=== PATIENT | female | born 1975 | race Caucasian/White ===

== ENCOUNTER 2016-09-05 22:09 | Emergency (ER) | payer MEDICAID ==
[~2016-09-05] VITALS: Ht 162.6 cm; Wt 81.0 kg
[~2016-09-05 22:09] MED LIST: IBUP-1542 PO
[2016-09-05 22:12] VITALS: Ht 162.6 cm; Wt 81.0 kg
[2016-09-06] MEDS ORDERED: morphine 4 MG/ML VIAL IV STA (01:40)
[2016-09-06] MEDS ORDERED: ONDANSETRON 4 MG INJ IV STA (01:40)
[2016-09-06] MEDS ORDERED: DICYCLOMINE 10 MG CAP PO ONE (02:00)
[2016-09-06 02:24] LABS: ADD UMIC YES; URINE BILIRUBIN (Dip) NEGATIVE (NEGATIVE); URINE BLOOD (Dip) 1+ (NEGATIVE); URINE COLOR LT. YELLOW (YELLOW); URINE GLUCOSE (Dip) NEGATIVE (NEGATIVE); URINE KETONES (Dip) NEGATIVE (NEGATIVE); URINE LEUKOCYTE ESTERASE (Dip) NEGATIVE (NEGATIVE); URINE NITRITE (Dip) NEGATIVE (NEGATIVE); URINE TOTAL PROTEIN (Dip) NEGATIVE (NEGATIVE); URINE UROBILINOGEN (Dip) 0.2 E.U./dL (0.1-1.0)
--- NOTE | 2016-09-06 02:26 | RADRPT ---
PROCEDURE: Abdominal ultrasound, limited. CLINICAL INDICATION: Abdominal pain. TECHNIQUE: Multiple real-time images were acquired of the patient's right upper abdomen utilizing a high resolution transducer. COMPARISON: None FINDINGS: The liver demonstrates normal echogenicity and increased size measuring 17.9 cm. There is no focal mass or intrahepatic biliary ductal dilatation. The portal vein is patent. The gallbladder is not distended. No gallstones are identified. There is no pericholecystic fluid or gallbladder wall thi ckening. The common bile duct measures 2.4 mm in maximal dimension. The visualized portions of the pancreas are unremarkable. No free fluid is identified. The right kidney is normal size and echogenicity measuring 12.2 cm. There is no focal renal mass id entified. There is a 5 mm right renal calculus. There is no obstructive uropathy. The visualized abdominal aorta and vena cava are unremarkable. IMPRESSION: Mild hepatomegaly. Right renal calculus. Otherwise unremarkable abdominal ultrasound. .Martín Kumar MD, Date Time Electronically viewed and signed by .Martín Kumar MD, MD on 09/06/2016 02:26 .T/
[2016-09-06 02:43] LABS: BASOPHILS % 0.9 % (0.0-2.0); EOSINOPHILS # 0.2 10^3/ul (0.0-0.5); EOSINOPHILS % 3.4 % (0.0-7.0); HEMOGLOBIN 11.7 g/dl (12.0-16.0); LYMPHOCYTES % 38.4 % (15.0-51.0); MEAN CORPUSCULAR HGB CONC 34.3 g/dl (32.0-37.0); MEAN CORPUSCULAR VOLUME 81.6 fl (82.0-101.0); MEAN PLATELET VOLUME 10.1 fl (7.4-10.4); MONOCYTE # 0.6 10^3/ul (0.3-0.9); MONOCYTES % 11.1 % (0.0-11.0); NEUTROPHIL # 2.4 10^3/ul (1.6-7.5); NEUTROPHILS % 46.2 % (39.0-77.0); PLATELET COUNT 247 10^3/UL (140-440); RED BLOOD COUNT 4.16 10^6/ul (4.20-5.40); RED CELL DISTRIBUTION WIDTH 13.3 % (11.5-14.5); UNCORRECTED WBC 5.2 10^3/ul (4.8-10.8); WHITE BLOOD COUNT 5.2 10^3/ul (4.8-10.8)
[2016-09-06 02:45] LABS: POTASSIUM 4.3 mmol/L (3.5-5.1)
[2016-09-06 02:46] LABS: CONDITION 1; LH ANALYZER COMMENTS 1
[2016-09-06 02:47] LABS: ALBUMIN/GLOBULIN RATIO 1.14; BILIRUBIN,INDIRECT 0.2 mg/dl (0-1.1); BILIRUBIN,TOTAL 0.2 mg/dl (0.2-1.3); CREATININE 0.64 mg/dl (0.44-1.00); TOTAL PROTEIN 7.5 g/dl (6.1-8.1)
[2016-09-06 02:48] LABS: CALCIUM 8.7 mg/dl (8.4-10.2)
[2016-09-06 03:30] LABS: BACTERIA,URINE FEW; SQUAMOUS EPITHELIAL CELL,UR FEW; URINE RBCS 0-2 /HPF (0)
[2016-09-06] MEDS ORDERED: NAPR-260 PO (04:03)
--- NOTE | 2016-09-06 04:07 | ERD ---
ER Documentation Chief Complaint Date/Time DATE: 09/06/16 TIME: 04:04 Chief Complaint RUQ abd pain radaiting to back x 1 day HPI 41-year-old female with no significant past medical history presents the ED complaining of right flank and right upper quadrant pain that started yesterday. States that sometimes the right upper quadrant pain radiates to the left side of her abdomen. Reports that she has slight chills but denies taking a temperature at home. Denies any fever, chest pain, shortness of breath, diarrhea, vomiting, nausea, wheezing, cough. Reports that her last menses was on September 03, 2015. Denies any urgency, frequency, hematuria, vaginal bleeding , vaginal discharge. ROS All systems reviewed and are negative except as per history of present illness. Medications Home Meds Active Scripts Naproxen* (Naprosyn*) 500 Mg Tablet, 500 MG PO BID Y for PAIN AND/OR INFLAMMATION, #30 TAB Prov:LINDA ROSALES PA-C 09/06/16 Ibuprofen* (Motrin*) 600 Mg Tab, 600 MG PO Q6H Y for PAIN AND OR ELEVATED TEMP, #30 TAB Prov:PARISA DUFFY MD 10/20/15 Allergies Allergies: Coded Allergies: No Known Allergy (Unverified , 10/20/15) PMhx/Soc History of Surgery: No Anesthesia Reaction: No Hx Neurological Disorder: No Hx Respiratory Disorders: No Hx Cardiac Disorders: No Hx Psychiatric Problems: No Hx Alcohol Use: No Hx Substance Use: No Hx Tobacco Use: No Smoking Status: Never smoker Physical Exam Vitals Vital Signs Date Time Temp Pulse Resp B/P Pulse Ox O2 Delivery O2 Flow Rate FiO2 09/05/16 22:12 98.3 84 20 128/77 100 Physical Exam Const: [id number], well-nourished. In no acute distress. Head: Atraumatic, normocephalic Eyes: Normal Conjunctiva without injection. No purulent discharge. ENT: Normal external ear, nose. Moist oropharynx without tonsillar exudates. Non -erythematous pharynx. Uvula midline. No drooling. No trismus. Neck: No cervical midline tenderness. Full range of motion. No meningismus. No cervical lymphadenopathy. No JVD. Resp: Clear to auscultation bilaterally. No wheezing, rhonchi, rales, or crackles. No accessory muscle use. No retractions. Cardio: Regular rate and rhythm. No murmurs, rubs or gallops. Abd: Soft, right upper quadrant tenderness, non distended. Normal bowel sounds. No palpable masses. No rebound tenderness. No guarding. Negative McBurney' s point. Negative psoas sign. Negative obturator sign. Skin: No petechiae or rashes Back: No midline tenderness. Right CVA tenderness. Ext: No cyanosis, or edema. Neur: Awake and alert. Normal gait. Normal coordination. Psych: Normal Mood and Affect Result Diagram: 09/06/1620909/06/16209 Results 24 hrs Laboratory Tests Test 09/06/16 02:10 Alanine Aminotransferase (ALT/SGPT) 31IU/L Albumin 4.0g/dl Albumin/Globulin Ratio 1.14 Alkaline Phosphatase 76IU/L Anion Gap 16 Aspartate Amino Transf (AST/SGOT) 31IU/L Basophils # 0.010^3/ul Basophils % 0.9% Blood Morphology Comment Blood Urea Nitrogen 18mg/dl Calcium Level 8.7mg/dl Carbon Dioxide Level 23mmol/L Chloride Level 109mmol/L Creatinine 0.64mg/dl Direct Bilirubin 0.00mg/dl Eosinophils # 0.210^3/ul Eosinophils % 3.4% Globulin 3.50g/dl Glucose Level 103mg/dl Hematocrit 34.0% Hemoglobin 11.7g/dl Indirect Bilirubin 0.2mg/dl Lipase 89U/L Lymphocytes # 2.010^3/ul Lymphocytes % 38.4% Mean Corpuscular Hemoglobin 28.0pg Mean Corpuscular Hemoglobin Concent 34.3g/dl Mean Corpuscular Volume 81.6fl Mean Platelet Volume 10.1fl Monocytes # 0.610^3/ul Monocytes % 11.1% Neutrophils # 2.410^3/ul Neutrophils % 46.2% Nucleated Red Blood Cells # 0.010^3/ul Nucleated Red Blood Cells % 0.0/100WBC Platelet Count 69737^3/UL Potassium Level 4.3mmol/L Red Blood Count 4.1610^6/ul Red Cell Distribution Width 13.3% Sodium Level 144mmol/L Total Bilirubin 0.2mg/dl Total Protein 7.5g/dl Urine Bacteria FEW Urine Bilirubin NEGATIVE Urine Clarity CLEAR Urine Color LT. YELLOW Urine Glucose NEGATIVE% Urine Hemoglobin 1+ Urine Ketones NEGATIVE Urine Leukocyte Esterase NEGATIVE Urine Microscopic RBC 0-2/HPF Urine Microscopic WBC 0-2/HPF Urine Nitrite NEGATIVE Urine Specific [place] 1.020 Urine Squamous Epithelial Cells FEW Urine Total Protein NEGATIVE Urine Urobilinogen 0.2 E.U./dL Urine pH 6.0 White Blood Count 5.210^3/ul Current Medications Medications (Trade) Dose Ordered Sig/Radha Route PRN Reason Start Time Stop Time Status Last Admin Dose Admin Morphine Sulfate (morphine) 4 mg ONCE STAT IV 09/06/16 01:40 09/06/16 01:43 DC 09/06/16 02:14 Ondansetron HCl (Zofran Inj) 4 mg ONCE STAT IV 09/06/16 01:40 09/06/16 01:43 DC 09/06/16 02:14 Dicyclomine HCl (Bentyl) 20 mg ONCE ONCE PO 09/06/16 02:00 09/06/16 02:01 DC 09/06/16 02:14 Procedures/MDM This is a 41-year-old female with no significant past medical history presents to the ED complaining of right upper quadrant and right flank pain. Patient is afebrile nontoxic appearing. Patient has normal vital signs. Patient was further worked up with CBC, CMP, lipase, UA, urine , gallbladder ultrasound. Patient's pain and symptoms have improved after treatment with 4 mg IV morphine, 4 mg IV Zofran, Bentyl. CBC: No leukocytosis. No e/o of systemic infection. No e/o anemia. CMP: No e/o severe acidosis, alkalosis, renal failure, diabetic ketoacidosis, liver disease Lipase within normal limits. Urine: No leukocyte esterase, no nitrites, no hematuria. Urine : Negative PROCEDURE: Abdominal ultrasound, limited. CLINICAL INDICATION: Abdominal pain. TECHNIQUE: Multiple real-time images were acquired of the patient's right upper abdomen utilizing a high resolution transducer. COMPARISON: None FINDINGS: The liver demonstrates normal echogenicity and increased size measuring 17.9 cm. There is no focal mass or intrahepatic biliary ductal dilatation. The portal vein is patent. The gallbladder is not distended. No gallstones are identified. There is no pericholecystic fluid or gallbladder wall thickening. The common bile duct measures 2.4 mm in maximal dimension. The visualized portions of the pancreas are unremarkable. No free fluid is identified. The right kidney is normal size and echogenicity measuring 12.2 cm. There is no focal renal mass identified. There is a 5 mm right renal calculus. There is no obstructive uropathy. The visualized abdominal aorta and vena cava are unremarkable. IMPRESSION: Mild hepatomegaly. Right renal calculus. Otherwise unremarkable abdominal ultrasound. Patient's pain could likely be due to the right renal calculus, 5 mm in size. There is no obstructive uropathy. Low suspicion for septic renal stone. Urinalysis is negative for leukocyte esterase and nitrite. A differential diagnosis considered includes but is not limited to gastritis, GERD, peptic ulcer disease, cholecystitis, choledocholithiasis, cholangitis, pancreatitis, appendicitis, bowel obstruction, ileus, volvulus, nephrolithiasis, pyelonephritis, hepatitis, perforated viscus, diverticulitis, abdominal hernia, acute abdomen, mesenteric ischemia or other emergent conditions. Discharge medications: Naproxen Follow up with primary care physician in 1-2 days for referral to [facility] [employer] [employer]. Instructed patient to return to the ED sooner for any worsening symptoms. Patient's questions were answered. Patient understood and agreed with discharge plan. Patient discharged stable. Departure Diagnosis: Primary Impression: Kidney stone Condition: Stable Patient Instructions: Kidney Stone W/ Colic Referrals: COMMUNITY CLINICS YOU HAVE RECEIVED A MEDICAL SCREENING EXAM AND THE RESULTS INDICATE THAT YOU DO NOT HAVE A CONDITION THAT REQUIRES URGENT TREATMENT IN THE EMERGENCY DEPARTMENT. FURTHER EVALUATION AND TREATMENT OF YOUR CONDITION CAN WAIT UNTIL YOU ARE SEEN IN YOUR DOCTORS OFFICE WITHIN THE NEXT 1-2 DAYS. IT IS YOUR RESPONSIBILITY TO MAKE AN APPOINTMENT FOR FOLOW-UP CARE. IF YOU HAVE A PRIMARY DOCTOR --you should call your primary doctor and schedule an appointment IF YOU DO NOT HAVE A PRIMARY DOCTOR YOU CAN CALL OUR PHYSICIAN REFERRAL HOTLINE AT IF YOU CAN NOT AFFORD TO SEE A PHYSICIAN YOU CAN CHOSE FROM THE FOLLOWING [facility] [address] [facility] [address] [facility] [address] [facility] [address] [facility] [address] [facility]. [facility] [address] [facility]. [facility] YOU HAVE RECEIVED A MEDICAL SCREENING EXAM AND THE RESULTS INDICATE THAT YOU DO NOT HAVE A CONDITION THAT REQUIRES URGENT TREATMENT IN THE EMERGENCY DEPARTMENT. FURTHER EVALUATION AND TREATMENT OF YOUR CONDITION CAN WAIT UNTIL YOU ARE SEEN IN YOUR DOCTORS OFFICE WITHIN THE NEXT 1-2 DAYS. IT IS YOUR RESPONSIBILITY TO MAKE AN APPOINTMENT FOR FOLOW-UP CARE. IF YOU HAVE A PRIMARY DOCTOR --you should call your primary doctor and schedule and appointment IF YOU DO NOT HAVE A PRIMARY DOCTOR YOU CAN CALL OUR PHYSICIAN REFERRAL HOTLINE AT . IF YOU CAN NOT AFFORD TO SEE A PHYSICIAN YOU CAN CHOSE FROM THE FOLLOWING [facility] INSTITUTIONS: [facility] [address] [place] [address] [facility] [address] [place] [address] [facility] [address] [place] [address] [facility] URGENT CARE/SPECIALTIES Additional Instructions: FOLLOW UP WITH YOUR PRIMARY CARE PHYSICIAN in 2-3 days. Return to this facility if you are not improving as expected. LINDA ROSALES PA-C Sep 06, 2016 04:07
== END 2016-09-06 04:15 | disposition home or self-care (01) ==
LOC: FTE 22:09
DX: N20.0 Calculus of kidney (principal)
CPT/HCPCS: 36415; 76705; 80053; 81001; 83690; 85025; 96374; 96375; J2270; J2405; Z7502; Z7610; 81003

== ENCOUNTER 2016-12-13 13:11 | Emergency (ER) | payer MEDICAID ==
[~2016-12-13] VITALS: Ht 165.1 cm; Wt 79.5 kg
[~2016-12-13 13:11] MED LIST changes: +NAPR-260 PO
[2016-12-13 13:13] VITALS: Ht 165.1 cm; Wt 79.5 kg
[2016-12-13] MEDS ORDERED: morphine 4 MG/ML VIAL IV STA (14:26)
[2016-12-13] MEDS ORDERED: ONDANSETRON 4 MG INJ IV STA (14:26)
[2016-12-13 14:57] LABS: ADD SCAN DIFF NO
[2016-12-13 15:00] LABS: BASOPHILS % 0.4 % (0.0-2.0); EOSINOPHILS # 0.1 10^3/ul (0.0-0.5); EOSINOPHILS % 1.3 % (0.0-7.0); HEMATOCRIT 37.3 % (37.0-47.0); HEMOGLOBIN 12.4 g/dl (12.0-16.0); LYMPHOCYTES # 0.9 10^3/ul (0.8-2.9); LYMPHOCYTES % 10.7 % (15.0-51.0); MEAN CORPUSCULAR HEMOGLOBIN 27.3 pg (29.0-33.0); MEAN CORPUSCULAR HGB CONC 33.2 g/dl (32.0-37.0); MEAN PLATELET VOLUME 11.6 fl (7.4-10.4); MONOCYTE # 0.5 10^3/ul (0.3-0.9); MONOCYTES % 6.4 % (0.0-11.0); NEUTROPHIL # 6.8 10^3/ul (1.6-7.5); NEUTROPHILS % 80.7 % (39.0-77.0); PLATELET COUNT 250 10^3/UL (140-415); RED BLOOD COUNT 4.55 10^6/ul (4.20-5.40); RED CELL DISTRIBUTION WIDTH 13.2 % (11.5-14.5); WHITE BLOOD COUNT 8.5 10^3/ul (4.8-10.8)
--- NOTE | 2016-12-13 15:02 | ERD ---
ER Documentation Chief Complaint Date/Time DATE: 12/13/16 TIME: 14:59 Chief Complaint abd pain radiating to back x 2 days with vomiting HPI This is a 41-year-old female who presents to the emergency department today complaining of abdominal pain and back pain that started yesterday. States she is taking Naprosyn for the pain with no improvement. States that she has a history of kidney stones but this "feels worse". States she feels nauseated and has had vomiting. States she had a bowel movement this morning denies any fevers or chills, dysuria, hematuria. ROS All systems reviewed and are negative except as per history of present illness. Medications Home Meds Active Scripts Ondansetron Hcl* (Zofran*) 4 Mg Tablet, 4 MG PO Q6H for NAUSEA AND/OR VOMITING, #30 TAB Prov:SMOOTH CLAYTON PA-C 12/13/16 Acetaminophen* (Tylophen*) 500 Mg Capsule, 1 CAP PO Q6H Y for PAIN AND OR ELEVATED TEMP, #30 CAP Prov:SMOOTH CLAYTON PA-C 12/13/16 Docusate Sodium* (Colace*) 100 Mg Capsule, 100 MG PO TID, #30 CAP Prov:SMOOTH CLAYTON PA-C 12/13/16 Polyethylene Glycol* (Miralax*) 17 Gm Powd.pack, 17 GM PO DAILY, #20 Prov:SMOOTH CLAYTON PA-C 12/13/16 Tramadol HCl (Tramadol HCl) 50 Mg Tablet, 50 MG PO Q4 Y for PAIN, #20 TAB Prov:SMOOTH CLAYTON PA-C 12/13/16 Naproxen* (Naprosyn*) 500 Mg Tablet, 500 MG PO BID Y for PAIN AND/OR INFLAMMATION, #30 TAB Prov:LINDA ROSALES PA-C 09/06/16 Ibuprofen* (Motrin*) 600 Mg Tab, 600 MG PO Q6H Y for PAIN AND OR ELEVATED TEMP, #30 TAB Prov:PARISA DUFFY MD 10/20/15 Allergies Allergies: Coded Allergies: No Known Allergy (Unverified , 10/20/15) PMhx/Soc Medical and Surgical Hx: pt denies Medical Hx, pt denies Surgical Hx History of Surgery: No Anesthesia Reaction: No Hx Neurological Disorder: No Hx Respiratory Disorders: No Hx Cardiac Disorders: No Hx Psychiatric Problems: No Hx Alcohol Use: No Hx Substance Use: No Hx Tobacco Use: No Smoking Status: Never smoker Physical Exam Vitals Vital Signs Date Time Temp Pulse Resp B/P Pulse Ox O2 Delivery O2 Flow Rate FiO2 12/13/16 13:13 98.1 92 18 134/77 100 Physical Exam Const: mild distress Head: Atraumatic Eyes: Normal Conjunctiva ENT: Normal External Ears, Nose and Mouth. Neck: Full range of motion..~ No meningismus. Resp: Clear to auscultation bilaterally Cardio: Regular rate and rhythm, no murmurs Abd: Soft, diffuse abdominal pain non distended. Normal bowel sounds Skin: No petechiae or rashes Back: No midline tenderness. Bilateral paraspinal tenderness Ext: No cyanosis, or edema Neur: Awake and alert Psych: Normal Mood and Affect Result Diagram: 12/13/16 1430 12/13/16 1430 Results 24 hrs Laboratory Tests Test 12/13/16 14:30 12/13/16 14:45 White Blood Count 8.510^3/ul Red Blood Count 4.5510^6/ul Hemoglobin 12.4g/dl Hematocrit 37.3% Mean Corpuscular Volume 82.0fl Mean Corpuscular Hemoglobin 27.3pg Mean Corpuscular Hemoglobin Concent 33.2g/dl Red Cell Distribution Width 13.2% Platelet Count 56329^3/UL Mean Platelet Volume 11.6fl Neutrophils % 80.7% Lymphocytes % 10.7% Monocytes % 6.4% Eosinophils % 1.3% Basophils % 0.4% Nucleated Red Blood Cells % 0.0/100WBC Neutrophils # 6.810^3/ul Lymphocytes # 0.910^3/ul Monocytes # 0.510^3/ul Eosinophils # 0.110^3/ul Basophils # 0.010^3/ul Nucleated Red Blood Cells # 0.010^3/ul Sodium Level 140mmol/L Potassium Level 3.5mmol/L Chloride Level 102mmol/L Carbon Dioxide Level 27mmol/L Anion Gap 15 Blood Urea Nitrogen 15mg/dl Creatinine 0.62mg/dl Glucose Level 91mg/dl Calcium Level 9.4mg/dl Total Bilirubin 0.4mg/dl Direct Bilirubin 0.00mg/dl Indirect Bilirubin 0.4mg/dl Aspartate Amino Transf (AST/SGOT) 37IU/L Alanine Aminotransferase (ALT/SGPT) 36IU/L Alkaline Phosphatase 89IU/L Total Protein 8.0g/dl Albumin 4.3g/dl Globulin 3.70g/dl Albumin/Globulin Ratio 1.16 Lipase 46U/L Urine Color LT. YELLOW Urine Clarity CLEAR Urine pH 5.5 Urine Specific [place] 1.010 Urine Ketones NEGATIVE Urine Nitrite NEGATIVE Urine Bilirubin NEGATIVE Urine Urobilinogen 0.2 E.U./dL Urine Leukocyte Esterase NEGATIVE Urine Hemoglobin NEGATIVE Urine Glucose NEGATIVE% Urine Total Protein NEGATIVE Current Medications Medications (Trade) Dose Ordered Sig/Radha Route PRN Reason Start Time Stop Time Status Last Admin Dose Admin Morphine Sulfate (morphine) 4 mg ONCE STAT IV 12/13/16 14:26 12/13/16 14:29 DC 12/13/16 14:46 Ondansetron HCl (Zofran Inj) 4 mg ONCE STAT IV 12/13/16 14:26 12/13/16 14:29 DC 12/13/16 14:46 DIAGNOSTIC IMAGING REPORT Patient: ANTHONY LUNA : 1975 Age: 41 Sex: F MR #: [id number] DOS: 12/13/16 1426 Ordering MD: SMOOTH CLAYTON PA-C Location: [facility] Room/Bed: PROCEDURE: CT Abdomen and Pelvis without contrast. CLINICAL INDICATION: Abdominal pelvic pain. TECHNIQUE: CT scan of the abdomen and pelvis without contrast was performed on a multidetector high-resolution CT scanner. The patient was scanned without intravenous contrast. Coronal and sagittal reformatted images were obtained from the axial source images. Images were reviewed on a high-resolution PACS workstation. The total exam CTDI equals 10.82 mGy and the total exam DLP equals 589.75 mGy-cm. One or more of the following dose reduction techniques were used: - Automated exposure control. - Adjustment of the mA and/or kV according to patient size. - Use of iterative reconstruction technique. COMPARISON: None. FINDINGS: CT abdomen: The lung bases are clear. The heart size is normal, without pericardial thickening or effusion. The liver is normal in size and density without focal mass or intrahepatic biliary dilatation. The spleen is normal in size and homogeneous in density. The stomach is partially collapsed, but is grossly unremarkable. The pancreas as visualized is normal. The gallbladder and biliary tree are unremarkable and there is no evidence for biliary dilatation. The adrenal glands are symmetric and normal. The kidneys are symmetrically unremarkable as well. No renal calculus or obstructive uropathy or mass lesion is seen. The aorta is of normal caliber. There is no retroperitoneal lymphadenopathy. The natalya hepatis region is clear. The bowel and mesentery, as visualized, are equally unremarkable. CT pelvis: The small bowel loops situated within the pelvis are unremarkable. The appendix is normal. The pelvic organs are normal. The pelvic sidewalls and inguinal regions are clear. The sigmoid colon and rectum are normal. No mass or adenopathy is seen. No free fluid is present. No acute inflammation is identified at this time. Multiple benign phleboliths are seen within the lower pelvis. The surrounding osseous structures are unremarkable. No osteolytic or osteoblastic lesion is detected. IMPRESSION: 1. Unremarkable CT scan of the abdomen and pelvis. 2. No mass, lymphadenopathy, or focal acute inflammatory process. RPTAT: HMJB .Kayden Milligan MD, MD Date Time Electronically viewed and signed by .Kayden Milligan MD, MD on 12/13/2016 16:29 .B/ CC: SMOOTH CLAYTON PA-C [facility] This 41-year-old female who presents the emergency department today complaining of abdominal pain and back pain that started yesterday. On physical exam patient has diffuse abdominal pain. Patient indicated that this felt worse than her typical kidney stone pain. She was seen here in August of this year for right upper quadrant pain that radiated to her back. At that time she was diagnosed with a 5 mm right renal calculus. Her labs at that time were normal. Given the patient's physical exam and diffuse pain, I did obtain laboratory work as well as imaging. Laboratory work shows no elevated white blood cell count. She is not anemic. Platelets are within normal limits. Electrolytes are within normal limits. Glucose within normal limits. Liver functions normal limits. Lipase within normal limits. UA UA is negative for infection. Urine test is negative CT abdomen pelvis noncontrast unremarkable CT scan of the abdomen and pelvis. Appendix is normal. There is no mass or adenopathy. There is no free fluid. There is no acute inflammation identified at this time. The gallbladder and biliary tree are unremarkable. Kidneys are symmetrical and unremarkable as well. There is no renal calculus or obstructive uropathy or mass lesion seen. There is no mass, lymphadenopathy or focal acute inflammatory process Patient has abdominal pain of uncertain etiology. Low suspicion for acute surgical abdomen. Patient did indicate that she has had hemorrhoids in the past and possible that her abdominal pain may be related to constipation or passing of previous kidney stone She was given Zofran and morphine here in the emergency department. Patient was given a prescription for Zofran, tramadol, Tylenol and MiraLAX and Colace. At this time the patient is stable for discharge and outpatient management. Patient should follow up with their PCP in the next 1-2 days. They may return to the emergency department sooner for any persistent or worsening of symptoms. Patient understood and agreed with the plan. Departure Diagnosis: Primary Impression: Abdominal pain Abdominal location: generalized Qualified Code: R10.84 - Generalized abdominal pain Condition: Fair SMOOTH CLAYTON PA-C Dec 13, 2016 15:02
[2016-12-13 15:16] LABS: ALBUMIN 4.3 g/dl (3.3-4.9)
[2016-12-13 15:17] LABS: POTASSIUM 3.5 mmol/L (3.5-5.1)
[2016-12-13 15:19] LABS: ALBUMIN/GLOBULIN RATIO 1.16; BILIRUBIN,INDIRECT 0.4 mg/dl (0-1.1); BILIRUBIN,TOTAL 0.4 mg/dl (0.2-1.3); CREATININE 0.62 mg/dl (0.44-1.00)
[2016-12-13 15:20] LABS: CALCIUM 9.4 mg/dl (8.4-10.2)
[2016-12-13 15:27] LABS: ADD UMIC NO; URINE BILIRUBIN (Dip) NEGATIVE (NEGATIVE); URINE BLOOD (Dip) NEGATIVE (NEGATIVE); URINE COLOR LT. YELLOW (YELLOW); URINE GLUCOSE (Dip) NEGATIVE (NEGATIVE); URINE KETONES (Dip) NEGATIVE (NEGATIVE); URINE LEUKOCYTE ESTERASE (Dip) NEGATIVE (NEGATIVE); URINE NITRITE (Dip) NEGATIVE (NEGATIVE); URINE TOTAL PROTEIN (Dip) NEGATIVE (NEGATIVE); URINE UROBILINOGEN (Dip) 0.2 E.U./dL (0.1-1.0)
--- NOTE | 2016-12-13 16:29 | RADRPT ---
PROCEDURE: CT Abdomen and Pelvis without contrast. CLINICAL INDICATION: Abdominal pelvic pain. TECHNIQUE: CT scan of the abdomen and pelvis without contrast was performed on a multidetector hig h-resolution CT scanner. The patient was scanned without intravenous contrast. Coronal and sagittal reformatted images were obtained from the axial source images. Images were reviewed on a high-resol [employer] PACS workstation. The total exam CTDI equals 10.82 mGy and the total exam DLP equals 589.75 mG y-cm. One or more of the following dose reduction techniques were used: - Automated exposure control. - Adjustment of the mA and/or kV according to patient size. - Use of iterative reconstruction technique. COMPARISON: None. FINDINGS: CT abdomen: The lung bases are clear. The heart size is normal, without pericardial thickening or effusion. Th e liver is normal in size and density without focal mass or intrahepatic biliary dilatation. The sp chel[place] is normal in size and homogeneous in density. The stomach is partially collapsed, but is gross ly unremarkable. The pancreas as visualized is normal. The gallbladder and biliary tree are unrema rkable and there is no evidence for biliary dilatation. The adrenal glands are symmetric and normal . The kidneys are symmetrically unremarkable as well. No renal calculus or obstructive uropathy or mass lesion is seen. The aorta is of normal caliber. There is no retroperitoneal lymphadenopathy. The natalya hepatis reg ion is clear. The bowel and mesentery, as visualized, are equally unremarkable. CT pelvis: The small bowel loops situated within the pelvis are unremarkable. The appendix is normal. The pelv ic organs are normal. The pelvic sidewalls and inguinal regions are clear. The sigmoid colon and r ectum are normal. No mass or adenopathy is seen. No free fluid is present. No acute inflammation is identified at this time. Multiple benign phleboliths are seen within the lower pelvis. The surrounding osseous structures are unremarkable. No osteolytic or osteoblastic lesion is detect ed. IMPRESSION: 1. Unremarkable CT scan of the abdomen and pelvis. 2. No mass, lymphadenopathy, or focal acute inflammatory process. RPTAT: HMJB .Kayden Milligan MD, MD Date Time Electronically viewed and signed by .Kayden Milligan MD, MD on 12/13/2016 16:29 .B/
[2016-12-13] MEDS ORDERED: POLY17PO6 PO (16:40)
[2016-12-13] MEDS ORDERED: ACET500C5 PO (16:40)
[2016-12-13] MEDS ORDERED: DOCU-144 PO (16:40)
[2016-12-13] MEDS ORDERED: TRAM50TA2 PO (16:40)
[2016-12-13] MEDS ORDERED: ONDA4TAB8 PO (16:42)
[2016-12-13] MEDS ORDERED: ACETAMINOPHEN 500 MG TAB PO STA (17:17)
[2016-12-13 17:21] VITALS: BP 119/77; PULSE 77; RESP 20; TEMP 98.4
== END 2016-12-13 17:00 | disposition home or self-care (01) ==
LOC: FTE 13:11
DX: R10.84 Generalized abdominal pain (principal); R11.2 Nausea with vomiting, unspecified; R10.2 Pelvic and perineal pain
CPT/HCPCS: 36415; 74176; 80053; 81003; 83690; 85025; 96374; 96375; J2270; J2405; Z7502; Z7610

== ENCOUNTER 2017-07-07 10:26 | Emergency (ER) | payer MEDICAID ==
[~2017-07-07] VITALS: Ht 160 cm; Wt 78.9 kg
[~2017-07-07 10:26] MED LIST changes: +ACET500C5 PO; +DOCU-144 PO; +ONDA4TAB8 PO; +POLY17PO6 PO; +TRAM50TA2 PO
[2017-07-07 10:28] VITALS: Ht 160 cm; Wt 78.9 kg
--- NOTE | 2017-07-07 11:22 | RADRPT ---
PROCEDURE: XR Chest. CLINICAL INDICATION: chest pain TECHNIQUE: Single frontal view of the chest was obtained COMPARISON: None FINDINGS: The heart and mediastinum are within normal limits. The lungs are clear. There is no pleural effusion or pneumothorax. RPTAT: AA IMPRESSION: No acute disease. .Jose Martin Cedeño MD, Date Time Electronically viewed and signed by .Jose Martin Cedeño MD, on 07/07/2017 11:21 .S/
[2017-07-07] MEDS ORDERED: HYDROCODONE/APAP (5/325) TAB PO ONE (11:30)
--- NOTE | 2017-07-07 11:34 | ERD ---
ER Documentation Chief Complaint Chief Complaint left breast pain and swelling x 3 days HPI This 42-year-old female who presents the emergency department today complaining of left arm pain, left breast pain and chest wall pain for the past couple of days. Patient states that she went to her clinic yesterday and was given an injection for pain and was told to come to the ER if she had no improvement in symptoms. States that she think she had a fever yesterday. States she took Tylenol for the pain at 4 AM this morning. Denies any shortness of breath. Denies ROS All systems reviewed and are negative except as per history of present illness. Medications Home Meds Active Scripts Tramadol HCl (Tramadol HCl) 50 Mg Tablet, 50 MG PO Q4 Y for PAIN, #20 TAB Prov:SMOOTH CLAYTON-C 07/07/17 Acetaminophen* (Tylophen*) 500 Mg Capsule, 1 CAP PO Q6H Y for PAIN AND OR ELEVATED TEMP, #30 CAP Prov:SMOOTH CLAYTONC 07/07/17 Naproxen* (Naprosyn*) 500 Mg Tablet, 500 MG PO BID Y for PAIN AND/OR INFLAMMATION, #30 TAB Prov:SMOOTH CLAYTONC 07/07/17 Ondansetron Hcl* (Zofran*) 4 Mg Tablet, 4 MG PO Q6H for NAUSEA AND/OR VOMITING, #30 TAB Prov:SMOOTH CLAYTONC 12/13/16 Acetaminophen* (Tylophen*) 500 Mg Capsule, 1 CAP PO Q6H Y for PAIN AND OR ELEVATED TEMP, #30 CAP Prov:SMOOTH CLAYTONC 12/13/16 Docusate Sodium* (Colace*) 100 Mg Capsule, 100 MG PO TID, #30 CAP Prov:SMOOTH CLAYTONC 12/13/16 Polyethylene Glycol* (Miralax*) 17 Gm Powd.pack, 17 GM PO DAILY, #20 Prov:SMOOTH CLAYTONC 12/13/16 Tramadol HCl (Tramadol HCl) 50 Mg Tablet, 50 MG PO Q4 Y for PAIN, #20 TAB Prov:SMOOTH CLAYTONC 12/13/16 Naproxen* (Naprosyn*) 500 Mg Tablet, 500 MG PO BID Y for PAIN AND/OR INFLAMMATION, #30 TAB Prov:LINDA ROSALES PA-C 09/06/16 Ibuprofen* (Motrin*) 600 Mg Tab, 600 MG PO Q6H Y for PAIN AND OR ELEVATED TEMP, #30 TAB Prov:PARISA DUFFY MD 10/20/15 Allergies Allergies: Coded Allergies: No Known Allergy (Unverified , 10/20/15) PMhx/Soc History of Surgery: No Anesthesia Reaction: No Hx Neurological Disorder: No Hx Respiratory Disorders: No Hx Cardiac Disorders: No Hx Psychiatric Problems: No Hx Miscellaneous Medical Probl: No Hx Alcohol Use: No Hx Substance Use: No Hx Tobacco Use: No Smoking Status: Never smoker Physical Exam Vitals Vital Signs Date Time Temp Pulse Resp B/P Pulse Ox O2 Delivery O2 Flow Rate FiO2 07/07/17 10:28 98.9 88 20 126/68 100 Physical Exam Const: NAD Head: Atraumatic Eyes: Normal Conjunctiva ENT: Normal External Ears, Nose and Mouth. Neck: Full range of motion..~ No meningismus. Resp: Clear to auscultation bilaterally. No absent breath sounds. No wheezing Breast: Left breast with no skin dimpling, erythema or warmth. Diffusely tender to palpation. No nipple discharge. Cardio: Regular rate and rhythm, no murmurs Abd: Soft, non tender, non distended. Normal bowel sounds Skin: No petechiae or rashes Back: No midline or flank tenderness Ext: No cyanosis, or edema. Left arm with full active range of motion. Pulses 2+. Distal neurovascularly intact. Neur: Awake and alert Psych: Normal Mood and Affect Results 24 hrs Current Medications Medications (Trade) Dose Ordered Sig/Radha Route PRN Reason Start Time Stop Time Status Last Admin Dose Admin Acetaminophen/ Hydrocodone Bitart ([place] (5/325)) 1 tab ONCE ONCE PO 07/07/17 11:30 07/07/17 11:31 DC 07/07/17 11:25 Ketorolac Tromethamine (Toradol) 30 mg ONCE STAT IM 07/07/17 13:08 07/07/17 13:12 DC 07/07/17 13:17 DIAGNOSTIC IMAGING REPORT Patient: ANTHONY LUNA : 1975 Age: 42 Sex: F MR #: [id number] DOS: 07/07/17 1057 Ordering MD: SMOOTH CLAYTON PA-C Location: [facility] Room/Bed: PROCEDURE: XR Chest. CLINICAL INDICATION: chest pain TECHNIQUE: Single frontal view of the chest was obtained COMPARISON: None FINDINGS: The heart and mediastinum are within normal limits. The lungs are clear. There is no pleural effusion or pneumothorax. RPTAT: AA IMPRESSION: No acute disease. .Jose Martin Cedeño MD, MD Date Time Electronically viewed and signed by .Jose Martin Cedeño MD, MD on 07/07/2017 11: 21 .S/ CC: SMOOTH CLAYTON PA-C DIAGNOSTIC IMAGING REPORT Patient: ANTHONY LUNA : 1975 Age: 42 Sex: F MR #: [id number] DOS: 07/07/17 0000 Ordering MD: SMOOTH CLAYTON PA-C Location: [facility] Room/Bed: PROCEDURE: Left breast ultrasound. CLINICAL INDICATION: Left breast pain and swelling TECHNIQUE: Left whole breast, 4 quadrant and retroareolar, and axillary sonography was performed. COMPARISON: None FINDINGS: No solid or suspicious masses. No areas of architectural distortion. No malignant adenopathy. At the 2 o'clock position, there is a cyst, which measures up to 1.7 cm. There is an adjacent smaller cyst, which measures up to 6 mm. IMPRESSION: No sonographic findings of malignancy. Two are demonstrated in the 2 o'clock position, the largest measuring up to 1.7 cm. For complete diagnostic evaluation , recommend correlation with current mammogram. BI-RADS 0: INCOMPLETE, NEED ADDITIONAL IMAGING EVALUATION Patient will be entered into reminder system for immediate follow up imaging. RPTAT: EE Physician Cam Date Time Electronically viewed and signed by Physician Cam on 07/07/2017 12 :52 GC/ CC: SMOOTH CLAYTON PA-C Procedures/MDM This is a 42-year-old female who presents emergency department today with multiple areas of pain complaints. Given that patient was complaining of chest wall pain and left arm pain and breast pain I did obtain EKG, chest x-ray and breast ultrasound. EKG read and interpreted by Dr. Treviño. Rate [address] elevation. No QT prolongation. Normal sinus rhythm. Low suspicion for STEMI, Chest x-ray shows no acute disease. There is no pleural effusion or pneumothorax. Lungs are clear. Low suspicion for pneumonia, PE, abscess, pleural effusion, pneumothorax Breast US shows no sonographic findings of malignancy. There is no solid or suspicious mass. There is no malignant adenopathy. The 2 o'clock position there is a cyst which measures up to 1.7 cm and there is an adjacent smaller cyst which measures up to 6 mm. Symptoms at this time is consistent with left breast pain and chest wall pain likely costochondritis. Her symptoms appear to be fibrocystic changes at this time. She is afebrile and otherwise well-appearing there is no erythema or warmth and have low suspicion for mastitis, abscess. I did have Dr. Treivño see and evaluate the patient and she is not that she requires antibiotics at this time. There is no indication on ultrasound of abscess at this time. This is been explained to the patient. She may return to the emergency department for any worsening of symptoms or follow up in her clinic for repeat ultrasound in 1 week to see if there have been any changes in the size of the cyst. Patient was given [place] here in the emergency department. She continued to complain of some pain and was therefore given Toradol. Patient was given a prescription for short course of tramadol, Naprosyn and Tylenol for home. At this time the patient is stable for discharge and outpatient management. Patient should follow up with their PCP in the next 1-2 days. They may return to the emergency department sooner for any persistent or worsening of symptoms. Patient understood and agreed with the plan. Departure Diagnosis: Primary Impression: Breast pain Additional Impression: Chest wall pain Condition: Fair SMOOTH CLAYTON PA-C Jul 07, 2017 11:34
--- NOTE | 2017-07-07 12:52 | RADRPT ---
PROCEDURE: Left breast ultrasound. CLINICAL INDICATION: Left breast pain and swelling TECHNIQUE: Left whole breast, 4 quadrant and retroareolar, and axillary sonography was performed. COMPARISON: None FINDINGS: No solid or suspicious masses. No areas of architectural distortion. No malignant adenopathy. At t he 2 o'clock position, there is a cyst, which measures up to 1.7 cm. There is an adjacent smaller cy st, which measures up to 6 mm. IMPRESSION: No sonographic findings of malignancy. Two are demonstrated in the 2 o'clock position, the largest m easuring up to 1.7 cm. For complete diagnostic evaluation, recommend correlation with current mammog nohemi. BI-RADS 0: INCOMPLETE, NEED ADDITIONAL IMAGING EVALUATION Patient will be entered into reminder system for immediate follow up imaging. RPTAT: EE Physician Cam Date Time Electronically viewed and signed by Physician Cam on 07/07/2017 12:52 /
[2017-07-07] MEDS ORDERED: KETOROLAC 30 MG INJ IM STA (13:08)
[2017-07-07] MEDS ORDERED: NAPR-260 PO (13:24)
[2017-07-07] MEDS ORDERED: ACET500C5 PO (13:24)
[2017-07-07] MEDS ORDERED: TRAM50TA2 PO (13:26)
[2017-07-07 13:31] VITALS: BP 123/68; PULSE 78; RESP 20; TEMP 98.2
== END 2017-07-07 13:32 | disposition home or self-care (01) ==
LOC: FTE 10:26
DX: N64.4 Mastodynia (principal); R07.89 Other chest pain
CPT/HCPCS: 71010; 76642; 93005; 96372; J1885; Z7502; Z7610

== ENCOUNTER 2017-08-21 17:02 | Emergency (ER) | END 2017-08-21 18:06 | disposition home or self-care (01) ==

== ENCOUNTER 2018-01-01 17:58 | Emergency (ER) | END 2018-01-01 21:29 | disposition home or self-care (01) ==

== ENCOUNTER 2019-01-08 12:17 | Emergency (ER) | payer SELFPAY ==
[~2019-01-08] VITALS: Ht 167.6 cm; Wt 83.1 kg
[~2019-01-08 12:17] MED LIST changes: +CEPH-443 PO; +CYCL10TA7 PO; -NAPR-260 PO; +NAPR-985 PO
[2019-01-08 12:20] VITALS: Ht 167.6 cm; Wt 83.1 kg
[2019-01-08] MEDS ORDERED: morphine 4 MG/ML VIAL IV STA (12:33)
[2019-01-08] MEDS ORDERED: SOD CHLORIDE 0.9% 1,000 ML IV STA (12:33)
[2019-01-08] MEDS ORDERED: ONDANSETRON 4 MG INJ IV STA (12:33)
[2019-01-08] MEDS ORDERED: KETOROLAC 15 MG INJ IV STA (12:33)
--- NOTE | 2019-01-08 13:10 | ERD ---
ER Documentation Chief Complaint Chief Complaint headache , flank pain , dizziness x 2 days with chills HPI During the patient's encounter translation services were utilized Language: Senegalese Source: Video 43-year-old female who presents to the emergency room with 2 days of severe left-sided flank pain without radiation. She does describe some associated subjective chills and possible fever. She denies any dysuria urgency or frequency. Remote history of kidney stone but this feels somewhat higher and worse than in the past. Patient denies any cough or shortness of breath, no pleuritic pain. She denies any anterior abdominal pain. ROS All systems reviewed and are negative except as per history of present illness. Medications Home Meds Active Scripts Ibuprofen* (Motrin*) 800 Mg Tab, 800 MG PO Q6H PRN for PAIN AND OR ELEVATED TEMP, #30 TAB Prov:JUAN HERNANDEZ MD 01/08/19 Discontinued Scripts Acetaminophen* (Tylophen*) 500 Mg Capsule, 2 CAP PO Q8H PRN for PAIN AND OR ELEVATED TEMP, #20 CAP Prov:ANDRES ROSENTHAL PA-C 09/14/18 Ibuprofen* (Motrin*) 600 Mg Tab, 600 MG PO Q6, #30 TAB Prov:ANDRES ROSENTHAL PA-C 09/14/18 Naproxen* (Naprosyn*) 500 Mg Tablet, 500 MG PO BID PRN for PAIN AND/OR INFLAMMATION, #30 TAB Prov:SUSAN WHITNEY PA-C 01/01/18 Cyclobenzaprine Hcl* (Cyclobenzaprine Hcl*) 10 Mg Tablet, 10 MG PO TID, #15 TAB Prov:SUSAN WHITNEY PA-C 01/01/18 Cephalexin* (Keflex*) 500 Mg Capsule, 500 MG PO QID for 7 Days, CAP Prov:BEHZAD LEMOS PA-C 08/21/17 Naproxen* (Naprosyn*) 500 Mg Tablet, 500 MG PO BID PRN for PAIN AND/OR INFLAMMATION, #30 TAB Prov:BEHZAD LEMOS PA-C 08/21/17 Tramadol HCl (Tramadol HCl) 50 Mg Tablet, 50 MG PO Q4 PRN for PAIN, #20 TAB Prov:SMOOTH CLAYTON PA-C 07/07/17 Acetaminophen* (Tylophen*) 500 Mg Capsule, 1 CAP PO Q6H PRN for PAIN AND OR ELEVATED TEMP, #30 CAP Prov:SMOOTH CLAYTONC 07/07/17 Naproxen* (Naprosyn*) 500 Mg Tablet, 500 MG PO BID PRN for PAIN AND/OR INFLAMMATION, #30 TAB Prov:SMOOTH CLAYTONC 07/07/17 Ondansetron Hcl* (Zofran*) 4 Mg Tablet, 4 MG PO Q6H for NAUSEA AND/OR VOMITING, #30 TAB Prov:SMOOTH CLAYTONC 12/13/16 Acetaminophen* (Tylophen*) 500 Mg Capsule, 1 CAP PO Q6H PRN for PAIN AND OR ELEVATED TEMP, #30 CAP Prov:SMOOTH CLAYTONC 12/13/16 Docusate Sodium* (Colace*) 100 Mg Capsule, 100 MG PO TID, #30 CAP Prov:SMOOTH CLAYTONC 12/13/16 Polyethylene Glycol* (Miralax*) 17 Gm Powd.pack, 17 GM PO DAILY, #20 Prov:SMOOTH CLAYTONC 12/13/16 Tramadol HCl (Tramadol HCl) 50 Mg Tablet, 50 MG PO Q4 PRN for PAIN, #20 TAB Prov:SMOOTH CLAYTONC 12/13/16 Naproxen* (Naprosyn*) 500 Mg Tablet, 500 MG PO BID PRN for PAIN AND/OR INFLAMMATION, #30 TAB Prov:LINDA ROSALES PA-C 09/06/16 Ibuprofen* (Motrin*) 600 Mg Tab, 600 MG PO Q6H PRN for PAIN AND OR ELEVATED TEMP, #30 TAB Prov:PARISA DUFFY MD 10/20/15 Allergies Allergies: Coded Allergies: No Known Allergy (Unverified , 01/08/19) PMhx/Soc History of Surgery: No Anesthesia Reaction: No Hx Neurological Disorder: No Hx Respiratory Disorders: No Hx Cardiac Disorders: No Hx Psychiatric Problems: No Hx Miscellaneous Medical Probl: No Hx Alcohol Use: No Hx Substance Use: No Hx Tobacco Use: No FmHx Family History: No diabetes Physical Exam Vitals Vital Signs Date Temp Pulse Resp B/P (MAP) Pulse Ox O2 O2 Flow FiO2 Time Delivery Rate 01/08/19 98.0 68 16 111/70 99 Nasal 2.0 13:31 (84) Cannula 01/08/19 98.5 104 18 129/68 99 12:20 (88) Physical Exam General: Uncomfortable, tearful and in pain Head: Normocephalic, atraumatic. Eyes: Pupils equally reactive, EOM intact ENT: Moist mucous membranes Neck: Supple, no lymphadenopathy Respiratory: Lungs clear bilaterally, no distress Cardiovascular: RRR, no murmurs, rubs, or gallops Abdominal: Soft, non-tender, non-distended, no peritoneal signs, no tenderness to McBurney's point, negative Ferrell sign Back: Very mild CVAT to the left side : Deferred MSK: No edema, no unilateral swelling, 5/5 strength Neurologic: Alert and oriented, moving all extremities, normal speech, no focal weakness, no cerebellar signs Skin: No rash Psych: Normal mood Result Diagram: 01/08/19 1252 01/08/19 1252 Results 24 hrs Laboratory Tests Test 01/08/19 12:52 01/08/19 12:59 01/08/19 13:04 White Blood Count 6.0 10^3/ul Red Blood Count 4.42 10^6/ul Hemoglobin 12.0 g/dl Hematocrit 35.6 % Mean Corpuscular Volume 80.5 fl Mean Corpuscular Hemoglobin 27.1 pg Mean Corpuscular 33.7 g/dl Hemoglobin Concent Red Cell Distribution Width 13.0 % Platelet Count 261 10^3/UL Mean Platelet Volume 11.5 fl Immature Granulocytes % 0.300 % Neutrophils % 66.8 % Lymphocytes % 23.2 % Monocytes % 6.0 % Eosinophils % 2.5 % Basophils % 1.2 % Nucleated Red Blood Cells % 0.0 /100WBC Immature Granulocytes # 0.020 10^3/ul Neutrophils # 4.0 10^3/ul Lymphocytes # 1.4 10^3/ul Monocytes # 0.4 10^3/ul Eosinophils # 0.2 10^3/ul Basophils # 0.1 10^3/ul Nucleated Red Blood Cells # 0.0 10^3/ul Sodium Level 141 mmol/L Potassium Level 4.0 mmol/L Chloride Level 106 mmol/L Carbon Dioxide Level 26 mmol/L Anion Gap 9 Blood Urea Nitrogen 13 mg/dl Creatinine 0.78 mg/dl Est Glomerular Filtrat > 60 mL/min Rate mL/min Glucose Level 151 mg/dl Calcium Level 9.2 mg/dl Total Bilirubin 1.0 mg/dl Direct Bilirubin 0.00 mg/dl Indirect Bilirubin 1.0 mg/dl Aspartate Amino 34 IU/L Transf (AST/SGOT) Alanine 42 IU/L Aminotransferase (ALT/SGPT) Alkaline Phosphatase 89 IU/L Total Protein 8.0 g/dl Albumin 4.4 g/dl Globulin 3.60 g/dl Albumin/Globulin Ratio 1.22 Lipase 50 U/L Urine Color YELLOW Urine Clarity SLIGHTLY CLOUDY Urine pH 5.0 Urine Specific [place] 1.013 Urine Ketones NEGATIVE mg/dL Urine Nitrite NEGATIVE mg/dL Urine Bilirubin NEGATIVE mg/dL Urine Urobilinogen 1+ mg/dL Urine Leukocyte Esterase NEGATIVE Zach/ul Urine Microscopic RBC 1 /HPF Urine Microscopic WBC 1 /HPF Urine Squamous Epithelial Cells FEW /HPF Urine Bacteria FEW /HPF Urine Hemoglobin 2+ mg/dL Urine Glucose NEGATIVE mg/dL Urine Total Protein 1+ mg/dl POC Beta HCG, Qualitative NEGATIVE Current Medications Medications Dose Sig/Radha Start Time Status Last (Trade) Ordered Route PRN Stop Time Admin Dose Reason Admin Sodium 1,000 ml @ Q1H STAT 01/08/19 DC 01/08/19 Chloride 1,000 mls/hr IV 12:33 13:03 01/08/19 13:32 Morphine 4 mg ONCE STAT 01/08/19 DC 01/08/19 Sulfate IV 12:33 13:03 (morphine) 01/08/19 12:36 Ondansetron 4 mg ONCE STAT 01/08/19 DC 01/08/19 HCl (Zofran IV 12:33 13:03 Inj) 01/08/19 12:36 Ketorolac 15 mg ONCE STAT 01/08/19 DC 01/08/19 Tromethamine IV 12:33 13:03 (Toradol) 01/08/19 12:36 Procedures/MDM EKG, MONITORS, & DIAGNOSTIC IMAGING: CT a/p: IMPRESSION: No evidence of urolithiasis, obstructive uropathy, diverticulitis or appendicitis. LAB INTERPRETATION: I reviewed the laboratory testing and it shows no evidence of acute process MEDICAL DECISION MAKING: The patient presents with pain and subjective fevers and chills for approximately 2 days. Differential includes ureterolithiasis. The patient has a history of this but given chills and somewhat different nature I do believe that repeat CT would be appropriate. Also consider pyelonephritis though the patient is not describing significant urinary symptoms. The patient denies any respiratory symptoms therefore I do not believe this is consistent with pneumonia or pulmonary embolism or cardiac etiology. No risk factors for acute vascular process such as dissection. Patient otherwise has a benign abdominal exam therefore low concern for diverticulitis, appendicitis or hepatobiliary process such as acute cholecystitis. The patient will benefit from advanced imaging, symptom control, fluid resuscitation and reassessment. ER COURSE: * Patient was given IV fluids and pain control medication * Patient is now improved and resting comfortably. * Laboratory testing and diagnostic imaging is unrevealing for the patient's etiology of flank pain. Consider possible musculoskeletal versus radiculopathy versus passed stone. However at this point patient has no evidence of acute process that warrants hospitalization. Her pain is well controlled. Laboratory testing is reassuring. CONSULTATION: None DISPOSITION PLAN: The patient does not have an identifiable emergent medical condition that warrants inpatient hospitalization at this time. The patient is deemed safe for discharge with outpatient follow-up. We discussed follow up with the patient's primary care doctor within 24 to 48 hours as needed. We also discussed return to the emergency room for worsening symptoms or worsening condition. Outpatient referral: None required Discharge Medications: Motrin Nano Diagnosis: Primary Impression: Acute flank pain Condition: Stable JUAN HERNANDEZ MD January 08, 2019 13:10
[2019-01-08] MEDS ORDERED: IBUP800T48 PO (14:43)
[2019-01-08 15:47] VITALS: BP 112/62; PULSE 77; RESP 18
[2019-01-09] MEDS ORDERED: ACET325T33 PO (12:18)
[2019-01-09] MEDS ORDERED: ONDA4TAB14 PO (12:18)
== END 2019-01-08 15:51 | disposition home or self-care (01) ==
LOC: E/R 12:17
DX: R10.9 Unspecified abdominal pain (principal)
CPT/HCPCS: 74176; 80053; 81001; 81025; 83690; 85025; 87086; J1885; J2270; J2405; J7030; 36415; 96374; 96375

== ENCOUNTER 2019-01-09 08:29 | Emergency (ER) | payer SELFPAY ==
[~2019-01-09] VITALS: Ht 165.1 cm; Wt 82.9 kg
[~2019-01-09 08:29] MED LIST changes: +IBUP800T48 PO
[2019-01-09 08:48] VITALS: Ht 165.1 cm; Wt 82.9 kg
[2019-01-09] MEDS ORDERED: morphine 4 MG/ML VIAL IV STA (09:21)
[2019-01-09] MEDS ORDERED: SOD CHLORIDE 0.9% 1,000 ML IV STA (09:21)
[2019-01-09] MEDS ORDERED: KETOROLAC 30 MG INJ IV STA (09:21)
[2019-01-09] MEDS ORDERED: ONDANSETRON 4 MG INJ IV STA (09:21)
[2019-01-09] MEDS ORDERED: IOHEXOL 300MG/ML 150 ML BTL ONE (10:49)
[2019-01-09] MEDS ORDERED: SOD CHLORIDE 0.9% 100 ML ONE (10:49)
[2019-01-09] MEDS ORDERED: ACET325T33 PO (12:18)
[2019-01-09] MEDS ORDERED: ONDA4TAB14 PO (12:18)
[2019-01-09 12:30] VITALS: BP 122/71; PULSE 72; RESP 20
--- NOTE | 2019-01-09 12:53 | ERD ---
ER Documentation Chief Complaint Chief Complaint epigastric pain w/vomitting & diarrhea HPI 43-year-old female presenting with epigastric pain with vomiting and diarrhea. Patient states is been going on for the last 3 days. She had vomiting this morning. Denies any chest pain or shortness of breath. States she had a fever last night but has not taken any medications. Denies medical problems. NKDA. Surgical history denies. Social history denies ROS All systems reviewed and are negative except as per history of present illness. Medications Home Meds Active Scripts Acetaminophen* (Tylenol*) 325 Mg Tablet, 2 TAB PO Q6 PRN for PAIN AND OR ELEVATED TEMP, #20 TAB Prov:ANDRES ROSENTHAL PA-C 01/09/19 Ondansetron (Ondansetron Odt) 4 Mg Tab.rapdis, 4 MG PO Q6H PRN for NAUSEA AND/OR VOMITING, #10 TAB Prov:ANDRES ROSENTHAL PA-C 01/09/19 Ibuprofen* (Motrin*) 800 Mg Tab, 800 MG PO Q6H PRN for PAIN AND OR ELEVATED TEMP, #30 TAB Prov:JUAN HERNANDEZ MD 01/08/19 Discontinued Scripts Acetaminophen* (Tylophen*) 500 Mg Capsule, 2 CAP PO Q8H PRN for PAIN AND OR ELEVATED TEMP, #20 CAP Prov:ANDRES ROSENTHAL PA-C 09/14/18 Ibuprofen* (Motrin*) 600 Mg Tab, 600 MG PO Q6, #30 TAB Prov:ANDRES ROSENTHAL PA-C 09/14/18 Naproxen* (Naprosyn*) 500 Mg Tablet, 500 MG PO BID PRN for PAIN AND/OR INFLAMMATION, #30 TAB Prov:SUSAN WHITNEY PA-C 01/01/18 Cyclobenzaprine Hcl* (Cyclobenzaprine Hcl*) 10 Mg Tablet, 10 MG PO TID, #15 TAB Prov:SUSAN WHITNEY PA-C 01/01/18 Cephalexin* (Keflex*) 500 Mg Capsule, 500 MG PO QID for 7 Days, CAP Prov:BEHZAD LEMOS PA-C 08/21/17 Naproxen* (Naprosyn*) 500 Mg Tablet, 500 MG PO BID PRN for PAIN AND/OR INFLAMMATION, #30 TAB Prov:BEHZAD LEMOS PA-C 08/21/17 Tramadol HCl (Tramadol HCl) 50 Mg Tablet, 50 MG PO Q4 PRN for PAIN, #20 TAB Prov:SMOOTH CLAYTONC 07/07/17 Acetaminophen* (Tylophen*) 500 Mg Capsule, 1 CAP PO Q6H PRN for PAIN AND OR ELEVATED TEMP, #30 CAP Prov:SMOOTH CLAYTONC 07/07/17 Naproxen* (Naprosyn*) 500 Mg Tablet, 500 MG PO BID PRN for PAIN AND/OR INFLAMMATION, #30 TAB Prov:SMOOTH CLAYTONC 07/07/17 Ondansetron Hcl* (Zofran*) 4 Mg Tablet, 4 MG PO Q6H for NAUSEA AND/OR VOMITING, #30 TAB Prov:SMOOTH CLAYTONC 12/13/16 Acetaminophen* (Tylophen*) 500 Mg Capsule, 1 CAP PO Q6H PRN for PAIN AND OR ELEVATED TEMP, #30 CAP Prov:SMOOTH CLAYTONC 12/13/16 Docusate Sodium* (Colace*) 100 Mg Capsule, 100 MG PO TID, #30 CAP Prov:SMOOTH CLAYTONC 12/13/16 Polyethylene Glycol* (Miralax*) 17 Gm Powd.pack, 17 GM PO DAILY, #20 Prov:SMOOTH CLAYTONC 12/13/16 Tramadol HCl (Tramadol HCl) 50 Mg Tablet, 50 MG PO Q4 PRN for PAIN, #20 TAB Prov:SMOOTH CLAYTONC 12/13/16 Naproxen* (Naprosyn*) 500 Mg Tablet, 500 MG PO BID PRN for PAIN AND/OR INFLAMMATION, #30 TAB Prov:LINDA ROSALES PA-C 09/06/16 Ibuprofen* (Motrin*) 600 Mg Tab, 600 MG PO Q6H PRN for PAIN AND OR ELEVATED TEMP, #30 TAB Prov:PARISA DUFFY MD 10/20/15 Allergies Allergies: Coded Allergies: No Known Allergy (Unverified , 01/08/19) PMhx/Soc History of Surgery: No Anesthesia Reaction: No Hx Neurological Disorder: No Hx Respiratory Disorders: No Hx Cardiac Disorders: No Hx Psychiatric Problems: No Hx Miscellaneous Medical Probl: No Hx Alcohol Use: No Hx Substance Use: No Hx Tobacco Use: No FmHx Family History: No diabetes, No coronary disease, No other Physical Exam Vitals Vital Signs Date Temp Pulse Resp B/P (MAP) Pulse Ox O2 O2 Flow FiO2 Time Delivery Rate 01/09/19 72 20 122/71 99 Room Air 12:30 (88) 01/09/19 98.0 76 18 127/70 100 08:48 (89) Physical Exam GENERAL: The patient is well-appearing, well-nourished, in no acute distress HEENT: Atraumatic. Conjunctivae are pink. Pupils equal, round, and reactive to light. There is no scleral icterus. Tympanic membranes clear bilaterally. Oropharynx clear. NECK: C-spine is soft and supple. There is no meningismus. There is no cervical lymphadenopathy. CHEST: Clear to auscultation bilaterally. There are no rales, wheezes or rhonchi. HEART: Regular rate and rhythm. No murmurs, clicks, rubs or gallops. ABDOMEN:Soft, nontender and nondistended. Good bowel sounds. No rebound or guarding. No gross peritonitis. Result Diagram: 01/09/19 0949 01/09/19 0949 Results 24 hrs Laboratory Tests Test 01/09/19 09:49 01/09/19 09:57 White Blood Count 4.5 10^3/ul Red Blood Count 4.57 10^6/ul Hemoglobin 12.2 g/dl Hematocrit 37.1 % Mean Corpuscular Volume 81.2 fl Mean Corpuscular Hemoglobin 26.7 pg Mean Corpuscular Hemoglobin Concent 32.9 g/dl Red Cell Distribution Width 13.1 % Platelet Count 269 10^3/UL Mean Platelet Volume 11.7 fl Immature Granulocytes % 0.200 % Neutrophils % 54.8 % Lymphocytes % 32.5 % Monocytes % 8.0 % Eosinophils % 2.7 % Basophils % 1.8 % Nucleated Red Blood Cells % 0.0 /100WBC Immature Granulocytes # 0.010 10^3/ul Neutrophils # 2.5 10^3/ul Lymphocytes # 1.5 10^3/ul Monocytes # 0.4 10^3/ul Eosinophils # 0.1 10^3/ul Basophils # 0.1 10^3/ul Nucleated Red Blood Cells # 0.0 10^3/ul Urine Color STRAW Urine Clarity CLEAR Urine pH 6.0 Urine Specific [place] 1.010 Urine Ketones NEGATIVE mg/dL Urine Nitrite NEGATIVE mg/dL Urine Bilirubin NEGATIVE mg/dL Urine Urobilinogen NEGATIVE mg/dL Urine Leukocyte Esterase NEGATIVE Zach/ul Urine Microscopic RBC 0 /HPF Urine Microscopic WBC 0 /HPF Urine Hemoglobin 1+ mg/dL Urine Glucose NEGATIVE mg/dL Urine Total Protein NEGATIVE mg/dl Sodium Level 142 mmol/L Potassium Level 4.6 mmol/L Chloride Level 110 mmol/L Carbon Dioxide Level 26 mmol/L Anion Gap 6 Blood Urea Nitrogen 14 mg/dl Creatinine 0.51 mg/dl Est Glomerular Filtrat Rate mL/min > 60 mL/min Glucose Level 103 mg/dl Calcium Level 9.3 mg/dl Total Bilirubin 0.6 mg/dl Direct Bilirubin 0.00 mg/dl Indirect Bilirubin 0.6 mg/dl Aspartate Amino Transf (AST/SGOT) 44 IU/L Alanine Aminotransferase (ALT/SGPT) 47 IU/L Alkaline Phosphatase 91 IU/L Total Protein 7.4 g/dl Albumin 4.1 g/dl Globulin 3.30 g/dl Albumin/Globulin Ratio 1.24 Lipase 72 U/L POC Beta HCG, Qualitative NEGATIVE Current Medications Medications Dose Sig/Radha Start Time Status Last (Trade) Ordered Route PRN Stop Time Admin Dose Reason Admin Sodium 1,000 ml @ Q1H STAT 01/09/19 DC 01/09/19 Chloride 1,000 mls/hr IV 09:21 09:43 01/09/19 10:20 Morphine 4 mg ONCE STAT 01/09/19 DC 01/09/19 Sulfate IV 09:21 09:42 (morphine) 01/09/19 09:23 Ondansetron 4 mg ONCE STAT 01/09/19 DC 01/09/19 HCl (Zofran IV 09:21 09:42 Inj) 01/09/19 09:23 Ketorolac 30 mg ONCE STAT 01/09/19 DC 01/09/19 Tromethamine IV 09:21 09:42 (Toradol) 01/09/19 09:23 IV Flush 10 ml STK-MED 01/09/19 DC 01/09/19 (NS 10 ml) ONCE .ROUTE 10:49 11:07 01/09/19 10:50 Sodium 100 ml @ ud STK-MED 01/09/19 DC 01/09/19 Chloride ONCE .ROUTE 10:49 11:07 01/09/19 10:50 Iohexol 150 ml STK-MED 01/09/19 DC 01/09/19 (Omnipaque ONCE .ROUTE 10:49 11:07 300mg/ ml) 01/09/19 10:50 Procedures/MDM DIAGNOSTIC IMAGING REPORT Patient: ANTHONY LUNA : 1975 Age: 43 Sex: F MR #: [id number] DOS: 01/09/19920 Ordering MD: NOE ROSENTHAL PA-C Location: [facility] Room/Bed: PROCEDURE: US Abdomen. CLINICAL INDICATION: abdominal pain TECHNIQUE: Multiple real-time images were acquired of the patient's right upper quadrant abdomen and retroperitoneum utilizing a high resolution transducer. COMPARISON: US ABDOMEN 09/06/2016 FINDINGS: The liver demonstrates increased echogenicity. The liver is enlarged in size and no focal solid lesions are seen. The liver measures 18.3 cm in length. The portal vein is patent with normal direction of flow. No intrahepatic biliary dilatation is seen. No gallstones are identified within the gallbladder. There is no pericholecystic fluid or gallbladder wall thickening. The common bile duct measures 4 mm in maximal dimension. The visualized portions of the pancreas are unremarkable. The tail of the pancreas is not seen. No free fluid is identified. The right kidney is normal in size, and demonstrate normal echogenicity and cortical thickness. The right kidney measures 12.4 cm in long dimension. There is no evidence of hydronephrosis. There are no kidney stones. RPTAT: AA IMPRESSION: Mild hepatomegaly with fatty liver. No evidence of gallstones. DIAGNOSTIC IMAGING REPORT Patient: ANTHONY LUNA : 1975 Age: 43 Sex: F MR #: [id number] DOS: 01/09/19920 Ordering MD: NOE ROSENTAHL PA-C Location: [facility] Room/Bed: PROCEDURE: CT ABDOMEN AND PELVIS WITH IV CONTRAST. CLINICAL INDICATION: Abdominal pain TECHNIQUE: CT scan of the abdomen and pelvis with contrast was performed on a multidetector high-resolution CT scanner following the use of IV contrast. 100 cc Omnipaque-300 was administered. Coronal and sagittal reformatted images were obtained from the axial source images. Images were reviewed on a high-resolution PACS workstation. The total exam CTDI equals 13.5 mGy and the total exam DLP equals 734.6 mGy-cm. One or more of the following dose reduction techniques were used: Automated exposure control. Adjustment of the mA and/or kV according to patient size. Use of iterative reconstruction technique. DICOM images are available. COMPARISON: CT 01/08/2019 FINDINGS: CT abdomen: The lung bases are clear. The heart size is within normal limits. There is no significant pericardial effusion. Hepatic morphology is within normal limits. No gross contour deforming masses. The gallbladder is within normal limits. No evidence of intrahepatic or extrahepatic biliary dilatation. The spleen and pancreas are within normal limits. Both adrenal glands are within normal limits. Both kidneys are in normal anatomic position. No evidence of obstruction or hydronephrosis. No gross renal/ureteric calculi. The visualized GI tract demonstrate normal caliber loops of small and large bowel. No evidence of bowel obstruction. The appendix is within normal limits. The aorta is unremarkable. No significant retroperitoneal lymphadenopathy. CT pelvis: Bladder is within normal limits. Uterus is mildly enlarged and fluid is noted within the endometrial canal. Free fluid within pelvis. Rectosigmoid colon demonstrates stool. No significant pelvic lymphadenopathy. The visualized osseous structures, appears to be within normal limits. IMPRESSION: 1. No evidence of acute intra-abdominal/pelvic inflammatory process. No evidence of bowel obstruction. Stool filled loops of small and large bowel suggestive of constipation. The appendix is within normal limits. 2. No gross renal/ureteric calculi. No evidence of obstructive uropathy. 3. Fluid within the endometrial canal small amount of free fluid within the pelvis, probably physiologic. 4. Otherwise unremarkable CT scan of the abdomen/pelvis. MDM: 23-year-old female presenting with epigastric pain and vomiting. Patient exam is non-concerning blood work is within normal limits. Patient is discharged with medications. Patient is told symptoms change or worsen to return immediately to the ER. All questions answered at discharge Departure Diagnosis: Primary Impression: Epigastric pain Condition: Stable Patient Instructions: Vomiting (6Y-Adult), Epigastric Pain (Uncertain Cause) Referrals: COMMUNITY CLINICS YOU HAVE RECEIVED A MEDICAL SCREENING EXAM AND THE RESULTS INDICATE THAT YOU DO NOT HAVE A CONDITION THAT REQUIRES URGENT TREATMENT IN THE EMERGENCY DEPARTMENT. FURTHER EVALUATION AND TREATMENT OF YOUR CONDITION CAN WAIT UNTIL YOU ARE SEEN IN YOUR DOCTORS OFFICE WITHIN THE NEXT 1-2 DAYS. IT IS YOUR RESPONSIBILITY TO MAKE AN APPOINTMENT FOR FOLOW-UP CARE. IF YOU HAVE A PRIMARY DOCTOR --you should call your primary doctor and schedule an appointment IF YOU DO NOT HAVE A PRIMARY DOCTOR YOU CAN CALL OUR PHYSICIAN REFERRAL HOTLINE AT IF YOU CAN NOT AFFORD TO SEE A PHYSICIAN YOU CAN CHOSE FROM THE FOLLOWING [facility] [address] [facility] [facility] [address] [facility] [facility] [facility] [address] [facility] [facility] [address] [facility]. [facility] [address] [facility]. [facility] [address] Additional Instructions: FOLLOW UP WITH YOUR PRIMARY CARE PHYSICIAN TOMORROW.Return to this facility if you are not improving as expected. ANDRES ROSENTHAL PA-C January 09, 2019 12:53
== END 2019-01-09 12:30 | disposition home or self-care (01) ==
LOC: FTE 08:29
DX: R10.13 Epigastric pain (principal)
CPT/HCPCS: 36415; 74177; 76705; 80053; 81001; 81025; 83690; 85025; 96361; 96374; 96375; 99285; J1885; J2270; J2405; J7030; Q9967

== ENCOUNTER 2019-01-09 20:37 | Inpatient (IN) | payer MEDICAID ==
[~2019-01-09] VITALS: Ht 167.6 cm; Wt 85.0 kg
[~2019-01-09 20:37] MED LIST changes: +ACET325T33 PO; -ACET500C5 PO; -CEPH-443 PO; -CYCL10TA7 PO; -DOCU-144 PO; -IBUP-1542 PO; -NAPR-985 PO; +ONDA4TAB14 PO; -ONDA4TAB8 PO; -POLY17PO6 PO; -TRAM50TA2 PO
[2019-01-09] MEDS ORDERED: morphine 4 MG/ML VIAL IV STA (21:19)
[2019-01-09] MEDS ORDERED: SOD CHLORIDE 0.9% 1,000 ML IV STA (21:19)
[2019-01-09] MEDS ORDERED: ONDANSETRON 4 MG INJ IV STA (21:19)
[2019-01-09] MEDS ORDERED: ACETAMINOPHEN 325 MG TAB PO PRN (23:30)
[2019-01-09] MEDS ORDERED: NACL 0.9% 3 ML SYG IV SCH (23:30)
[2019-01-09] MEDS ORDERED: LIDOCAINE/MYLANTA 40 ML BTL PO ONE (23:30)
[2019-01-09] MEDS ORDERED: DOCUSATE SODIUM 100 MG CAP PO SCH (23:30)
--- NOTE | 2019-01-09 23:34 | HP ---
Date/Time of Note Date/Time of Note DATE: 01/09/19 TIME: 23:33 Assessment/Plan VTE Prophylaxis SCD applied (from Nsg): Yes Pharmacological prophylaxis: NA/contraindicated Pharm contraindication: low risk/ambulating Lines/Catheters IV Catheter Type (from Nrsg): Saline Lock Assessment/Plan Hospital Course This is a 43-year-old female being admitted to the [facility] floor for: #1 intractable abdominal pain: With nausea and vomiting. Possibly gastroenteritis, peptic ulcer disease, constipation CT scan shows signs of constipation and some pelvic free fluid in the endometrial canal, CT scan o therwise is normal. She does report symptoms of substernal burning and epigastric pain which could reflect peptic ulcer disease. I will check a stool occult blood. Her test is negative. At the current time we will treat her with a GI cocktail, Mylanta as needed. We will also put the patient on stool softeners of Colace and MiraLAX daily for her constipation. Will consult GI for further evaluation. #2 obesity: We will check hemoglobin A1c, lipid panel, TSH #3 normocytic anemia: We will check iron panel #4 DVT GI prophylaxis: SCDs, no GI prophylaxis indicated Further treatment strategy will be implemented as per the clinical course. Result Diagram: 01/09/19211401/09/192114 Results 24hrs Laboratory Tests Test 01/09/19 21:15 White Blood Count 5.2 Red Blood Count 3.87 L Hemoglobin 10.4 L Hematocrit 31.5 L Mean Corpuscular Volume 81.4 L Mean Corpuscular Hemoglobin 26.9 L Mean Corpuscular Hemoglobin Concent 33.0 Red Cell Distribution Width 13.1 Platelet Count 232 Mean Platelet Volume 11.4 H Immature Granulocytes % 0.200 Neutrophils % 48.7 Lymphocytes % 36.6 Monocytes % 8.1 Eosinophils % 5.2 Basophils % 1.2 Nucleated Red Blood Cells % 0.0 Immature Granulocytes # 0.010 Neutrophils # 2.5 Lymphocytes # 1.9 Monocytes # 0.4 Eosinophils # 0.3 Basophils # 0.1 Nucleated Red Blood Cells # 0.0 Sodium Level 140 Potassium Level 3.6 Chloride Level 107 Carbon Dioxide Level 23 Anion Gap 10 Blood Urea Nitrogen 12 Creatinine 0.55 Est Glomerular Filtrat Rate mL/min > 60 Glucose Level 150 Calcium Level 8.5 Total Bilirubin 0.5 Direct Bilirubin 0.00 Indirect Bilirubin 0.5 Aspartate Amino Transf (AST/SGOT) 37 Alanine Aminotransferase (ALT/SGPT) 40 Alkaline Phosphatase 77 Total Protein 6.8 Albumin 3.7 Globulin 3.10 Albumin/Globulin Ratio 1.19 Lipase 59 HPI/ROS Admit Date/Time Admit Date/Time Hx of Present Illness Chief complaint: Abdominal pain nausea vomiting x3 days This is a 43-year-old female who presented to the emergency department complaining of nausea vomiting abdominal pain x3 days. Patient originally presented earlier in the day for similar symptoms and had work-up done did not show any acute findings and was discharged home. She continued to complain of abdominal pain and nausea and vomiting and so returned. She also did report a headache. She denies any chest pain or any shortness of breath. She does re port a burning sensation along her substernal area that occurs after eating food. She does have palpable tenderness palpation over the epigastric area. She denies eating any recent food outside. She denies any sick contacts. She denies any fevers. Allergies: NKDA Medications: None ROS Const: As per HPI Eyes : No pain discharge or redness or change in visual acuity ENT: No pain, sore throat, congestion, congestion, dysphagia or discharge Respiratory: No shortness of breath, cough, sputum, wheezing, or pleuritic pain Cardiovascular: No chest pain, palpitation, PND, or edema GI : As per HPI Genitourinary: No dysuria, hematuria, flank pain , discharge or CVA tenderness Musculoskeletal: No joint pain, back pain, neck pain, restricted range of motion in neck or joints Skin: No rash, bruising or hives Neuro: No headache, dizziness, syncope, seizure, focal weakness Endocrine: No polyuria, polydipsia, temperature intolerance Psych: No hallucination, depression, anxiety or suicidal ideation PMH/Family/Social Past Medical History Medical History: no pertinent history Medications Current Medications Sodium Chloride 1,000 ml @ 75 mls/hr [id number] IV ; Start 01/09/19 at 23:28; Status UNV IV Flush (NS 3 ml) 3 ml PER PROTOCOL IV ; Start 01/09/19 at 23:30; Status UNV Ondansetron HCl (Zofran Inj) 4 mg Q6H PRN IV NAUSEA/VOMITING; Start 01/09/19 at 23:30; Status UNV Acetaminophen (Tylenol Tab) 650 mg Q6H PRN PO .PAIN 1-3 OR TEMP; Start 01/09/19 at 23:30 Morphine Sulfate (morphine) 2 mg Q4H PRN IV .SEVERE PAIN 7-10; Start 01/09/19 at 23:30; Status UNV Docusate Sodium (Colace) 100 mg Q12H PO ; Start 01/09/19 at 23:30; Status UNV Bisacodyl (Dulcolax) 5 mg DAILY PO ; Start 01/10/19 at 09:00; Status UNV Al Hydrox/Mg Hydrox/Simethicone (Mag-Al Plus) 30 ml Q4H PRN PO GASTROINTESTINAL UPSET; Start 01/10/19 at 00:00 Coded Allergies: No Known Allergy (Unverified , 01/08/19) Past Surgical History Past Surgical Hx: no surgical history Family History Significant Family History: no pertinent family hx Social History Alcohol Use: none Smoking Status: Never smoker Drug Use: none Exam/Review of Systems Vital Signs Vitals Vital Signs Date Temp Pulse Resp B/P (MAP) Pulse Ox O2 O2 Flow FiO2 Time Delivery Rate 01/09/19 98.6 73 18 138/78 100 20:41 (98) Exam Exam General: Well-developed, appears to be in abdominal discomfort. HEENT: Atraumatic, normocephalic. The pupils are equal, round and reactive. Extraocular motor are intact Neck: Supple with full range of motion. No rigidity or meningismus Chest: Nontender Lungs: Clear to auscultation bilaterally no crackles rales or wheezing Heart: Normal S1-S2, Regular rhythm and rate. No murmur, S3, or S4 Abdomen: Obese, soft, tenderness palpation of the epigastric region, no rebound or guarding, normal bowel sounds Extremities: Normal to inspection, no edema no cyanosis Neurologic: Normal mental status, speech normal, cranial nerves II through XII are intact, motor and sensory are intact, no focal weakness Additional Comments PROCEDURE: CT ABDOMEN AND PELVIS WITH IV CONTRAST. CLINICAL INDICATION: Abdominal pain TECHNIQUE: CT scan of the abdomen and pelvis with contrast was performed on a multidetector high-resolution CT scanner following the use of IV contrast. 100 cc Omnipaque-300 was administered. Coronal and sagittal reformatted images were obtained from the axial source images. Images were reviewed on a high-resolution PACS workstation. The total exam CTDI equals 13.5 mGy and the total exam DLP equals 734.6 mGy-cm. One or more of the following dose reduction techniques were used: Automated exposure control. Adjustment of the mA and/or kV according to patient size. Use of iterative reconstruction technique. DICOM images are available. COMPARISON: CT 01/08/2019 FINDINGS: CT abdomen: The lung bases are clear. The heart size is within normal limits. There is no significant pericardial effusion. Hepatic morphology is within normal limits. No gross contour deforming masses. The gallbladder is within normal limits. No evidence of intrahepatic or extrahepatic biliary dilatation. The spleen and pancreas are within normal limits. Both adrenal glands are within normal limits. Both kidneys are in normal anatomic position. No evidence of obstruction or hydronephrosis. No gross renal/ureteric calculi. The visualized GI tract demonstrate normal caliber loops of small and large bowel. No evidence of bowel obstruction. The appendix is within normal limits. The aorta is unremarkable. No significant retroperitoneal lymphadenopathy. CT pelvis: Bladder is within normal limits. Uterus is mildly enlarged and fluid is noted within the endometrial canal. Free fluid within pelvis. Rectosigmoid colon demonstrates stool. No significant pelvic lymphadenopathy. The visualized osseous structures, appears to be within normal limits. IMPRESSION: 1. No evidence of acute intra-abdominal/pelvic inflammatory process. No evidence of bowel obstruction. Stool filled loops of small and large bowel suggestive of constipation. The appendix is within normal limits. 2. No gross renal/ureteric calculi. No evidence of obstructive uropathy. 3. Fluid within the endometrial canal small amount of free fluid within the pelvis, probably physiologic. 4. Otherwise unremarkable CT scan of the abdomen/pelvis. RPTAT: AAPP Physician Michelle Date Time Electronically viewed and signed by Physician Michelle on 01/09/2019 11:46 JAN/ CC: ANDRES ROSENTHAL PA-C [id number] PROCEDURE: US Abdomen. CLINICAL INDICATION: abdominal pain TECHNIQUE: Multiple real-time images were acquired of the patient's right upper quadrant abdomen and retroperitoneum utilizing a high resolution transd ucer. COMPARISON: US ABDOMEN 09/06/2016 FINDINGS: The liver demonstrates increased echogenicity. The liver is enlarged in size and no focal solid lesions are seen. The liver measures 18.3 cm in length. The portal vein is patent with normal direction of flow. No intrahepatic biliary dilatation is seen. No gallstones are identified within the gallbladder. There is no pericholecystic fluid or gallbladder wall thickening. The common bile duct measures 4 mm in maximal dimension. The visualized portions of the pancreas are unremarkable. The tail of the pancreas is not seen. No free fluid is identified. The right kidney is normal in size, and demonstrate normal echogenicity and cortical thickness. The right kidney measures 12.4 cm in long dimension. There is no evidence of hydronephrosis. There are no kidney stones. RPTAT: AA IMPRESSION: Mild hepatomegaly with fatty liver. No evidence of gallstones. .Jose Martin Cedeño MD, Date Time Electronically viewed and signed by .Jose Martin Cedeño MD, MD on 01/09/2019 10:11 .S/ CC: ANDRES ROSENTHAL PA-C [id number] JULY BELTRAN January 09, 2019 23:34
[2019-01-09] MEDS: SOD CHLORIDE 0.9% 1,000 ML IV SCH (23:50)
[2019-01-10] MEDS ORDERED: AL HYDROX/MG HYDROX/SIMETH 30 ML CUP PO PRN
[2019-01-10 00:10] VITALS: BP 123/73; PULSE 63; RESP 18
--- NOTE | 2019-01-10 01:15 | ERD ---
ER Documentation Chief Complaint Chief Complaint abd pain/vomiting, was here yesterday and earlier for same HPI 43-year-old female comes in with abdominal pain vomiting nausea for the past 2 to 3 days. She is been in 3 times over the past 2 days as this is her third visit. She says that vomiting and the pain is not controlled at home. She had a full negative work-up including CT and ultrasound. She continues to have diffuse abdominal pain nonradiating nonlocalizing with no exacerbating relieving factors. ROS All systems reviewed and are negative except as per history of present illness. Medications Home Meds Active Scripts Acetaminophen* (Tylenol*) 325 Mg Tablet, 2 TAB PO Q6 PRN for PAIN AND OR ELEVATED TEMP, #20 TAB Prov:ANDRES ROSENTHAL PA-C 01/09/19 Ondansetron (Ondansetron Odt) 4 Mg Tab.rapdis, 4 MG PO Q6H PRN for NAUSEA AND/OR VOMITING, #10 TAB Prov:ANDRES ROSENTHAL PA-C 01/09/19 Ibuprofen* (Motrin*) 800 Mg Tab, 800 MG PO Q6H PRN for PAIN AND OR ELEVATED TEMP, #30 TAB Prov:JUAN HERNANDEZ MD 01/08/19 Discontinued Scripts Acetaminophen* (Tylophen*) 500 Mg Capsule, 2 CAP PO Q8H PRN for PAIN AND OR ELEVATED TEMP, #20 CAP Prov:ANDRES ROSENTHAL PA-C 09/14/18 Ibuprofen* (Motrin*) 600 Mg Tab, 600 MG PO Q6, #30 TAB Prov:ANDRES ROSENTHAL PA-C 09/14/18 Naproxen* (Naprosyn*) 500 Mg Tablet, 500 MG PO BID PRN for PAIN AND/OR INFL AMMATION, #30 TAB Prov:SUSAN WHITNEY PA-C 01/01/18 Cyclobenzaprine Hcl* (Cyclobenzaprine Hcl*) 10 Mg Tablet, 10 MG PO TID, #15 TAB Prov:SUSAN WHITNEY PA-C 01/01/18 Cephalexin* (Keflex*) 500 Mg Capsule, 500 MG PO QID for 7 Days, CAP Prov:BEHZAD LEMOS PA-C 08/21/17 Naproxen* (Naprosyn*) 500 Mg Tablet, 500 MG PO BID PRN for PAIN AND/OR INFLAMMATION, #30 TAB Prov:BEHZAD LEMOS PA-C 08/21/17 Tramadol HCl (Tramadol HCl) 50 Mg Tablet, 50 MG PO Q4 PRN for PAIN, #20 TAB Prov:SMOOTH CLAYTONC 07/07/17 Acetaminophen* (Tylophen*) 500 Mg Capsule, 1 CAP PO Q6H PRN for PAIN AND OR ELEVATED TEMP, #30 CAP Prov:SMOOTH CLAYTONC 07/07/17 Naproxen* (Naprosyn*) 500 Mg Tablet, 500 MG PO BID PRN for PAIN AND/OR INFLAMMATION, #30 TAB Prov:SMOOTH CLAYTONC 07/07/17 Ondansetron Hcl* (Zofran*) 4 Mg Tablet, 4 MG PO Q6H for NAUSEA AND/OR VOMITING, #30 TAB Prov:SMOOTH CLAYTONC 12/13/16 Acetaminophen* (Tylophen*) 500 Mg Capsule, 1 CAP PO Q6H PRN for PAIN AND OR ELEVATED TEMP, #30 CAP Prov:SMOOTH CLAYTONC 12/13/16 Docusate Sodium* (Colace*) 100 Mg Capsule, 100 MG PO TID, #30 CAP Prov:SMOOTH CLAYTONC 12/13/16 Polyethylene Glycol* (Miralax*) 17 Gm Powd.pack, 17 GM PO DAILY, #20 Prov:SMOOTH CLAYTONC 12/13/16 Tramadol HCl (Tramadol HCl) 50 Mg Tablet, 50 MG PO Q4 PRN for PAIN, #20 TAB Prov:SMOOTH CLAYTONC 12/13/16 Naproxen* (Naprosyn*) 500 Mg Tablet, 500 MG PO BID PRN for PAIN AND/OR INFLAMMATION, #30 TAB Prov:LINDA ROSALES PA-C 09/06/16 Ibuprofen* (Motrin*) 600 Mg Tab, 600 MG PO Q6H PRN for PAIN AND OR ELEVATED TEMP, #30 TAB Prov:PARISA DUFFY MD 10/20/15 Allergies Allergies: Coded Allergies: No Known Allergy (Unverified , 01/08/19) PMhx/Soc History of Surgery: No Anesthesia Reaction: No Hx Neurological Disorder: No Hx Respiratory Disorders: No Hx Cardiac Disorders: No Hx Psychiatric Problems: No Hx Miscellaneous Medical Probl: No Hx Alcohol Use: No Hx Substance Use: No Hx Tobacco Use: No Smoking Status: Never smoker Physical Exam Vitals Vital Signs Date Temp Pulse Resp B/P (MAP) Pulse Ox O2 O2 Flow FiO2 Time Delivery Rate 01/09/19 98.6 73 18 138/78 100 20:41 (98) Physical Exam Const: No acute distress Head: Atraumatic Eyes: Normal Conjunctiva ENT: Normal External Ears, Nose and Mouth. Neck: Full range of motion. No meningismus. Resp: Clear to auscultation bilaterally Cardio: Regular rate and rhythm, no murmurs Abd: Soft, non tender, non distended. Normal bowel sounds Skin: No petechiae or rashes Back: No midline or flank tenderness Ext: No cyanosis, or edema Neur: Awake and alert Psych: Normal Mood and Affect Result Diagram: 01/09/19211401/09/192114 Results 24 hrs Laboratory Tests Test 01/09/19 21:15 White Blood Count 5.2 10^3/ul Red Blood Count 3.87 10^6/ul Hemoglobin 10.4 g/dl Hematocrit 31.5 % Mean Corpuscular Volume 81.4 fl Mean Corpuscular Hemoglobin 26.9 pg Mean Corpuscular Hemoglobin Concent 33.0 g/dl Red Cell Distribution Width 13.1 % Platelet Count 232 10^3/UL Mean Platelet Volume 11.4 fl Immature Granulocytes % 0.200 % Neutrophils % 48.7 % Lymphocytes % 36.6 % Monocytes % 8.1 % Eosinophils % 5.2 % Basophils % 1.2 % Nucleated Red Blood Cells % 0.0 /100WBC Immature Granulocytes # 0.010 10^3/ul Neutrophils # 2.5 10^3/ul Lymphocytes # 1.9 10^3/ul Monocytes # 0.4 10^3/ul Eosinophils # 0.3 10^3/ul Basophils # 0.1 10^3/ul Nucleated Red Blood Cells # 0.0 10^3/ul Sodium Level 140 mmol/L Potassium Level 3.6 mmol/L Chloride Level 107 mmol/L Carbon Dioxide Level 23 mmol/L Anion Gap 10 Blood Urea Nitrogen 12 mg/dl Creatinine 0.55 mg/dl Est Glomerular Filtrat Rate mL/min > 60 mL/min Glucose Level 150 mg/dl Calcium Level 8.5 mg/dl Total Bilirubin 0.5 mg/dl Direct Bilirubin 0.00 mg/dl Indirect Bilirubin 0.5 mg/dl Aspartate Amino Transf (AST/SGOT) 37 IU/L Alanine Aminotransferase (ALT/SGPT) 40 IU/L Alkaline Phosphatase 77 IU/L Total Protein 6.8 g/dl Albumin 3.7 g/dl Globulin 3.10 g/dl Albumin/Globulin Ratio 1.19 Lipase 59 U/L Current Medications Medications Dose Sig/Radha Start Time Status Last (Trade) Ordered Route PRN Stop Time Admin Dose Reason Admin Sodium 1,000 ml @ Q1H STAT 01/09/19 DC 01/09/19 Chloride 1,000 mls/hr IV 21:19 21:17 01/09/19 22:18 Morphine 4 mg ONCE STAT 01/09/19 DC 01/09/19 Sulfate IV 21: 21:26 (morphine) 01/09/19 21:22 Ondansetron 4 mg ONCE STAT 01/09/19 DC 01/09/19 HCl (Zofran IV 21:19 21:26 Inj) 01/09/19 21:22 Procedures/MDM Medical decision makin-year female with intractable abdominal pain multiple visits for the same complaint within the past 48 hours. Patient will be admitted to the hospitalist who is on-call. Given her continued pain, I feel patient warrants admission for further evaluation and management. She has no evidence of a surgical abdomen and has a negative work-up in the last 24 hours, however the etiology of this abdominal pain still remains unclear and the patient's pain is not controllable as an outpatient Departure Diagnosis: Primary Impression: Abdominal pain Abdominal location: unspecified location Qualified Codes: R10.9 - Unspecified abdominal pain Condition: SUSAN Zapata January 10, 2019 01:15
[2019-01-10 02:00] VITALS: BP 115/76; PULSE 70; RESP 18
[2019-01-10] MEDS: SOD CHLORIDE 0.9% 1,000 ML IV SCH ×2 (05:23→22:46)
[2019-01-10] MEDS: morphine 2 MG INJ IV PRN ×3 (07:45→22:47)
[2019-01-10] MEDS: ONDANSETRON 4 MG INJ IV PRN (07:51)
[2019-01-10 07:57] VITALS: BP 107/62; PULSE 66; RESP 17
[2019-01-10] MEDS ORDERED: BISACODYL (EC) 5 MG TAB PO SCH (09:00)
--- NOTE | 2019-01-10 11:11 | CONS ---
Assessment/Plan Assessment/Plan Hospital Course (Demo Recall) Summary Assessment and Plan: Assessment: Abdominal pain -PUD vs gastritis vs other Diarrhea- improved Microcytic anemia, mild Remote history of rectal bleeding -Hemorrhoidal bleed vs inflammation (less likely) vs other Plan: PPI BID Clear liquid diet today EGD/colonoscopy tomorrow Endoscopy - risks/benefits/alternatives/indications of procedure and sedation/anesthesia discussed with patient who states understanding and gives informed consent to proceed. Patient seen in collaboration with Dr. Brown CC: LUIZA BROWN MD ; Consultation Date/Type/Reason Admit Date/Time Date of Consultation: January 10, 2019 Type of Consult GI Reason for Consultation Abdominal pain Microcytic anemia Date/Time of Note DATE: 01/10/19 TIME: 11:02 Hx of Present Illness This is a 43-year-old female with no significant past medical history who presented to the hospital with complaints of significant abdominal pain. Patient states pain initially began Wednesday became progressively worse over the next few days. She states pain initially started bilateral upper back and moved over to epigastric and right upper quadrant area she states the pain is described as a burning sensation worse with spicy/greasy foods, and coffee. This was associated with 3 episodes of diarrhea yesterday which has resolved. Of note patient states about a week ago she had similar symptoms however pain was located in the lower abdominal area again associated with diarrhea that time she noted rectal bleeding described as red and since then she has no overt signs of GI bleed including melena, hematochezia, or hematemesis. Patient notes last menstrual cycle was slightly heavy but usually she is regular with work-up patient noted to have mild microcytic anemia a CT abdomen pelvis with contrast was obtained showing no evidence of acute intra-abdominal/pelvic inflammatory process. No evidence of bowel obstruction. Stool filled loops of small and large bowel suggestive of constipation. The appendix is within normal limits. No gross renal/ureteric calculi. No evidence of obstructive uropathy. Fluid within the endometrial canal small amount of free fluid within the pelvis, probably physiologic. Otherwise unremarkable CT. additionally gallbladder ultrasound was obtained showing mild hepatomegaly and no evidence of cholelithiasis. Review of Systems: A 12 system, review was conducted and is negative except as noted in the HPI or here. Past Medical History Medical History: no pertinent history Home Meds Active Scripts Acetaminophen* (Tylenol*) 325 Mg Tablet, 2 TAB PO Q6 PRN for PAIN AND OR ELEVATED TEMP, #20 TAB Prov:ANDRES ROSENTHAL PA-C 01/09/19 Ondansetron (Ondansetron Odt) 4 Mg Tab.rapdis, 4 MG PO Q6H PRN for NAUSEA AND/OR VOMITING, #10 TAB Prov:ANDRES ROSENTHAL PA-C 01/09/19 Ibuprofen* (Motrin*) 800 Mg Tab, 800 MG PO Q6H PRN for PAIN AND OR ELEVATED TEMP, #30 TAB Prov:JUAN HERNANDEZ MD 01/08/19 Discontinued Scripts Acetaminophen* (Tylophen*) 500 Mg Capsule, 2 CAP PO Q8H PRN for PAIN AND OR ELEVATED TEMP, #20 CAP Prov:ANDRES ROSENTHAL PA-C 09/14/18 Ibuprofen* (Motrin*) 600 Mg Tab, 600 MG PO Q6, #30 TAB Prov:ANDRES ROSENTHAL PA-C 09/14/18 Naproxen* (Naprosyn*) 500 Mg Tablet, 500 MG PO BID PRN for PAIN AND/OR INFLAMMATION, #30 TAB Prov:SUSAN WHITNEYC 01/01/18 Cyclobenzaprine Hcl* (Cyclobenzaprine Hcl*) 10 Mg Tablet, 10 MG PO TID, #15 TAB Prov:SUSAN WHITNEYC 01/01/18 Cephalexin* (Keflex*) 500 Mg Capsule, 500 MG PO QID for 7 Days, CAP Prov:BEHZAD LEMOS PA-C 08/21/17 Naproxen* (Naprosyn*) 500 Mg Tablet, 500 MG PO BID PRN for PAIN AND/OR INFLAMMATION, #30 TAB Prov:BEHZAD LEMOSC 08/21/17 Tramadol HCl (Tramadol HCl) 50 Mg Tablet, 50 MG PO Q4 PRN for PAIN, #20 TAB Prov:SMOOTH CLAYTON PA-C 07/07/17 Acetaminophen* (Tylophen*) 500 Mg Capsule, 1 CAP PO Q6H PRN for PAIN AND OR ELEVATED TEMP, #30 CAP Prov:SMOOTH CLAYTON PA-C 07/07/17 Naproxen* (Naprosyn*) 500 Mg Tablet, 500 MG PO BID PRN for PAIN AND/OR INFLAMMATION, #30 TAB Prov:SMOOTH CLAYTONC 07/07/17 Ondansetron Hcl* (Zofran*) 4 Mg Tablet, 4 MG PO Q6H for NAUSEA AND/OR VOMITING, #30 TAB Prov:SMOOTH CLAYTONC 12/13/16 Acetaminophen* (Tylophen*) 500 Mg Capsule, 1 CAP PO Q6H PRN for PAIN AND OR ELEVATED TEMP, #30 CAP Prov:SMOOTH CLAYTONC 12/13/16 Docusate Sodium* (Colace*) 100 Mg Capsule, 100 MG PO TID, #30 CAP Prov:SMOOTH CLAYTONC 12/13/16 Polyethylene Glycol* (Miralax*) 17 Gm Powd.pack, 17 GM PO DAILY, #20 Prov:SMOOTH CLAYTONC 12/13/16 Tramadol HCl (Tramadol HCl) 50 Mg Tablet, 50 MG PO Q4 PRN for PAIN, #20 TAB Prov:SMOOTH CLAYTONC 12/13/16 Naproxen* (Naprosyn*) 500 Mg Tablet, 500 MG PO BID PRN for PAIN AND/OR INFLAMMATION, #30 TAB Prov:LINDA ROSALES PA-C 09/06/16 Ibuprofen* (Motrin*) 600 Mg Tab, 600 MG PO Q6H PRN for PAIN AND OR ELEVATED TEMP, #30 TAB Prov:PARISA DUFFY MD 10/20/15 Medications Current Medications Sodium Chloride 1,000 ml @ 75 mls/hr [id number] IV Last administered on 01/10/19at 05:23; Admin Dose 75 MLS/HR; Start 01/09/19 at 23:28 IV Flush (NS 3 ml) 3 ml PER PROTOCOL IV ; Start 01/09/19 at 23:30 Ondansetron HCl (Zofran Inj) 4 mg Q6H PRN IV NAUSEA/VOMITING Last administered on 01/10/19at 07:51; Admin Dose 4 MG; Start 01/09/19 at 23:30 Acetaminophen (Tylenol Tab) 650 mg Q6H PRN PO .PAIN 1-3 OR TEMP Last administered on 01/10/19at 05:23; Admin Dose 650 MG; Start 01/09/19 at 23:30 Morphine Sulfate (morphine) 2 mg Q4H PRN IV .SEVERE PAIN 7-10 Last administered on 01/10/19at 07:45; Admin Dose 2 MG; Start 01/09/19 at 23:30 Al Hydrox/Mg Hydrox/Simethicone (Mag-Al Plus) 30 ml Q4H PRN PO GASTROINTESTINAL UPSET; Start 01/10/19 at 00:00 Allergies: Coded Allergies: No Known Allergy (Unverified , 01/08/19) Past Surgical History Past Surgical Hx: no surgical history Social History Alcohol Use: none Smoking Status: Never smoker Drug Use: none Exam/Review of Systems Exam Vitals Vital Signs Date Temp Pulse Resp B/P (MAP) Pulse Ox O2 O2 Flow FiO2 Time Delivery Rate 01/10/19 98.0 66 17 107/62 98 07:57 (77) 01/09/19 Room Air 23:57 Intake and Output 01/09/19 01/09/19 01/10/19 1515:00 23:00 07:00 IntakeIntake Total 575 ml OutputOutput Total 900 ml BalanceBalance -325 ml Exam GENERAL: Well developed, well nourished, alert & oriented x 3, in no acute distress SKIN: No lesions HEAD: Normocephalic, atraumatic, no tenderness. EYES: Pupils equal reactive to light and accommodation, full extraocular movements, sclera clear, non-icteric, no discharge. EARS/NOSE AND THROAT: Ears normal, nose normal. NECK: Supple, no masses CHEST: Inspection within normal limits. CARDIOVASCULAR: Heart: Regular rate and rhythm RESPIRATORY: Lungs clear to auscultation, no rubs GASTROINTESTINAL AND LIVER: Abdomen: Soft, upper abdominal tenderness, non- distended, no hernias, no masses, no organomegaly, no ascites, no guarding, no rebound tenderness, normoactive bowel sounds. Rectal: Deferred. EXTREMITIES: No cyanosis, clubbing or edema. Results Result Diagram: 01/10/1961701/10/1918 Results 24hrs Laboratory Tests Test 01/09/19 21:15 01/10/19 06:18 White Blood Count 5.2 4.6 L Red Blood Count 3.87 L 3.69 L Hemoglobin 10.4 L 10.2 L Hematocrit 31.5 L 30.1 L Mean Corpuscular Volume 81.4 L 81.6 L Mean Corpuscular Hemoglobin 26.9 L 27.6 L Mean Corpuscular Hemoglobin Concent 33.0 33.9 Red Cell Distribution Width 13.1 13.2 Platelet Count 232 218 Mean Platelet Volume 11.4 H 11.5 H Immature Granulocytes % 0.200 0.400 Neutrophils % 48.7 48.4 Lymphocytes % 36.6 37.1 Monocytes % 8.1 7.5 Eosinophils % 5.2 5.5 Basophils % 1.2 1.1 Nucleated Red Blood Cells % 0.0 0.0 Immature Granulocytes # 0.010 0.020 Neutrophils # 2.5 2.2 Lymphocytes # 1.9 1.7 Monocytes # 0.4 0.3 Eosinophils # 0.3 0.3 Basophils # 0.1 0.1 Nucleated Red Blood Cells # 0.0 0.0 Sodium Level 140 139 Potassium Level 3.6 4.4 Chloride Level 107 109 Carbon Dioxide Level 23 26 Anion Gap 10 4 L Blood Urea Nitrogen 12 8 Creatinine 0.55 0.52 Est Glomerular Filtrat Rate mL/min > 60 > 60 Glucose Level 150 98 # Calcium Level 8.5 8.0 L Total Bilirubin 0.5 0.5 Direct Bilirubin 0.00 0.00 Indirect Bilirubin 0.5 0.5 Aspartate Amino Transf (AST/SGOT) 37 31 Alanine Aminotransferase (ALT/SGPT) 40 40 Alkaline Phosphatase 77 64 Total Protein 6.8 6.0 L Albumin 3.7 3.3 Globulin 3.10 2.70 Albumin/Globulin Ratio 1.19 1.22 Lipase 59 Hemoglobin A1c 5.6 Magnesium Level 2.0 Thyroid Stimulating Hormone (TSH) 6.880 H Free Thyroxine Index 2.40 Thyroxine (T4) 6.7 Triiodothyronine (T3) Uptake 35.8 Medications Medication Current Medications Sodium Chloride 1,000 ml @ 75 mls/hr [id number] IV Last administered on 01/10/19at 05:23; Admin Dose 75 MLS/HR; Start 01/09/19 at 23:28 IV Flush (NS 3 ml) 3 ml PER PROTOCOL IV ; Start 01/09/19 at 23:30 Ondansetron HCl (Zofran Inj) 4 mg Q6H PRN IV NAUSEA/VOMITING Last administered on 01/10/19 07:51; Admin Dose 4 MG; Start 01/09/19 at 23:30 Acetaminophen (Tylenol Tab) 650 mg Q6H PRN PO .PAIN 1-3 OR TEMP Last administered on 01/10/19 05:23; Admin Dose 650 MG; Start 01/09/19 at 23:30 Morphine Sulfate (morphine) 2 mg Q4H PRN IV .SEVERE PAIN 7-10 Last administered on 01/10/19 07:45; Admin Dose 2 MG; Start 01/09/19 at 23:30 Al Hydrox/Mg Hydrox/Simethicone (Mag-Al Plus) 30 ml Q4H PRN PO GASTROINTESTINAL UPSET; Start 01/10/19 at 00:00 WOLF PRATT January 10, 2019 11:11
[2019-01-10] MEDS ORDERED: BISACODYL (EC) 5 MG TAB PO ONE (12:00)
[2019-01-10 14:00] VITALS: BP 116/78; PULSE 65; RESP 18
[2019-01-10] MEDS ORDERED: traMADol 50 MG TAB PO PRN (15:30)
--- NOTE | 2019-01-10 16:35 | PN ---
DATE: 01/10/2019 SUBJECTIVE: The patient is stable this morning, still has mild epigastric discomfort, but no nausea, no vomiting, tolerating jello diet. PHYSICAL EXAMINATION: VITAL SIGNS: Temperature 98, pulse is 66, blood pressure 107/62, O2 saturation 96% on room air. NECK: Supple. No JVD or lymphadenopathy. CARDIAC: S1, S2. No added sounds or murmurs. CHEST: Diminished air entry bilaterally. ABDOMEN: Soft, nontender. No guarding or rebound. EXTREMITIES: No cyanosis, clubbing, edema. NEUROLOGIC: Grossly intact. No focal deficits. LABORATORY DATA: White count 4.6, hemoglobin 10.2, platelets 218. Chemistry within normal limits. TSH at 6.82. IMPRESSION: 1. Epigastric pain concerning for possible peptic ulcer disease, pending colonoscopy and endoscopy t omorrow. 2. Hypothyroidism versus sick euthyroid. PLAN: 1. EGD, colonoscopy tomorrow. Anticipate discharge after procedure. 2. Outpatient followup for thyroid function testing. Dictated By: LEOLA KEY MD SV/DEMARCUS Conf#: [id number] DID#: [id number] CC: JULY BELTRAN MD;*EndCC*
[2019-01-10] MEDS ORDERED: MAGNESIUM CITRATE 300 ML BTL PO ONE (17:30)
[2019-01-10] MEDS: PANTOPRAZOLE 40 MG INJ IV SCH (17:39)
[2019-01-10] MEDS ORDERED: POLYETHYLENE GLYCOL 3350 119 GM POWDER PO ONE (18:30)
[2019-01-10 20:00] VITALS: BP 131/75; PULSE 65
[2019-01-11] VITALS (13 sets, daily range): BP systolic 105–128; BP diastolic 52–76; PULSE 58–74; RESP 14–21
[2019-01-11] MEDS: PANTOPRAZOLE 40 MG INJ IV SCH ×2 (05:57→18:09)
[2019-01-11] MEDS ORDERED: POLYETHYLENE GLYCOL 3350 119 GM POWDER PO ONE (06:00)
[2019-01-11] MEDS: morphine 2 MG INJ IV PRN (07:58)
[2019-01-11] MEDS ORDERED: BISACODYL (EC) 5 MG TAB PO ONE (08:00)
[2019-01-11] MEDS: ONDANSETRON 4 MG INJ IV PRN (09:03)
--- NOTE | 2019-01-11 09:20 | PN ---
Date/Time of Note Date/Time of Note DATE: 01/11/19 TIME: 09:18 Assessment/Plan VTE Prophylaxis Risk score (from Nsg)>0 risk: 1 SCD applied (from Nsg): Yes Pharmacological prophylaxis: NA/contraindicated Pharm contraindication: low risk/ambulating Lines/Catheters IV Catheter Type (from Nrsg): Peripheral IV Assessment/Plan Hospital Course SUBJECTIVE: Lying in bed having 7 out of 10 epigastric abdominal pain. No diarrhea, fever, chills, nausea, vomiting. OBJECTIVE: Vital signs-see below PHYSICAL EXAM: Constitutional: Adequately built,not in acute distress. HEENT: Head atraumatic and normocephalic. Eyes: Extraocular muscles intact. Anicteric sclerae. Pupils equal bilaterally, reactive to light. NECK: Supple without lymph node. CHEST: Clear and good breath sounds equally. No wheezing. No rhonchi. HEART: S1, S2. Regular rate and rhythm. ABDOMEN: Tender mostly on epigastric area. No rebound tenderness. Bowel sounds were present. EXTREMITIES: No cyanosis, clubbing or edema. NEUROLOGIC: Alert and oriented x3. No focal deficit. No sensory deficit. PSYCHOSOCIAL: No signs of depression. INTEGUMENTARY: No open wounds. ASSESSMENT AND PLAN:43 yo obese F w/no significant pmh who takes ibuprofen 800 mg for abdominal pain here w/ worsening epigastric abd pian worsens w/eating.. Epigastric abdominal pain, rule out PUD/gastritis versus others Plan is EGD evaluation today. Continue empiric PPI -Avoid NSAIDs Subclinical hypothyroidism Recommend outpatient follow-up labs Microcytic anemia -Add iron panel DVT prophylaxis: SCDs Disposition: Follow-up EGD/colonoscopy findings. Likely DC in a.m. Patient was seen in collaboration with Dr. Gutierrez. Result Diagram: 01/10/1961701/10/1918 Results 24hrs Laboratory Tests Test 01/11/19 01:50 Urine Test NEGATIVE Exam/Review of Systems Exam Vitals Vital Signs Date Temp Pulse Resp B/P (MAP) Pulse Ox O2 O2 Flow FiO2 Time Delivery Rate 01/11/19 98.4 63 16 122/62 98 08:02 (82) 01/10/19 Room Air 14:00 Intake and Output 01/10/19 01/10/19 01/11/19 1515:00 23:00 07:00 IntakeIntake Total 1800 ml 600 ml BalanceBalance 1800 ml 600 ml Results Results 24hrs Laboratory Tests Test 01/11/19 01:50 Urine Test NEGATIVE Medications Medication Current Medications Sodium Chloride 1,000 ml @ 75 mls/hr [id number] IV Last administered on 01/10/19 22:46; Admin Dose 75 MLS/HR; Start 01/09/19 at 23:28 IV Flush (NS 3 ml) 3 ml PER PROTOCOL IV ; Start 01/09/19 at 23:30 Ondansetron HCl (Zofran Inj) 4 mg Q6H PRN IV NAUSEA/VOMITING Last administered on 01/11/19 09:03; Admin Dose 4 MG; Start 01/09/19 at 23:30 Acetaminophen (Tylenol Tab) 650 mg Q6H PRN PO .PAIN 1-3 OR TEMP Last administered on 01/10/19 05:23; Admin Dose 650 MG; Start 01/09/19 at 23:30 Morphine Sulfate (morphine) 2 mg Q4H PRN IV .SEVERE PAIN 7-10 Last administered on 01/11/19 07:58; Admin Dose 2 MG; Start 01/09/19 at 23:30 Al Hydrox/Mg Hydrox/Simethicone (Mag-Al Plus) 30 ml Q4H PRN PO GASTROINTESTINAL UPSET; Start 01/10/19 at 00:00 Pantoprazole (Protonix Iv) 40 mg BID@06,18 IV Last administered on 01/11/19 05:57; Admin Dose 40 MG; Start 01/10/19 at 18:00 Tramadol HCl (Ultram) 50 mg Q6H PRN PO MODERATE PAIN LEVEL 4-6; Start 01/10/19 at 15:30 SERJIO FRANCES NP January 11, 2019 09:19
[2019-01-11] MEDS: SOD CHLORIDE 0.9% 1,000 ML IV SCH (11:17)
--- NOTE | 2019-01-11 16:07 | PREAC ---
Date/Time of Note Date/Time of Note DATE: 01/11/19 TIME: 16:05 Anesthesia Eval and Record Evaluation Time Pre-Procedure Interview DATE: 01/11/19 TIME: 16:05 Age 43 Sex female NPO: 8 hrs Preoperative diagnosis Anemia Planned procedure EGD, Colonscopy Past Medical History Past Medical History: Includes Cardio: Dyslipidemia GI: Morbid obesity Heme: Anemia Surgery & Anesthesia Issues No known issue Meds Anticoagulation: No Beta Marilu within 24 hr: No Reason Beta Marilu not given: Pt. not on B-Marilu Active Scripts Acetaminophen* (Tylenol*) 325 Mg Tablet, 2 TAB PO Q6 PRN for PAIN AND OR ELEVATED TEMP, #20 TAB Prov:ANDRES ROSENTHAL PA-C 01/09/19 Ondansetron (Ondansetron Odt) 4 Mg Tab.rapdis, 4 MG PO Q6H PRN for NAUSEA AND/OR VOMITING, #10 TAB Prov:ANDRES ROSENTHAL PA-C 01/09/19 Ibuprofen* (Motrin*) 800 Mg Tab, 800 MG PO Q6H PRN for PAIN AND OR ELEVATED TEMP, #30 TAB Prov:JUAN HERNANDEZ MD 01/08/19 Discontinued Scripts Acetaminophen* (Tylophen*) 500 Mg Capsule, 2 CAP PO Q8H PRN for PAIN AND OR ELEVATED TEMP, #20 CAP Prov:ANDRES ROSENTHAL PA-C 09/14/18 Ibuprofen* (Motrin*) 600 Mg Tab, 600 MG PO Q6, #30 TAB Prov:ANDRES ROSENTHAL PA-C 09/14/18 Naproxen* (Naprosyn*) 500 Mg Tablet, 500 MG PO BID PRN for PAIN AND/OR INFLAMMATION, #30 TAB Prov:SUSAN WHITNEY PA-C 01/01/18 Cyclobenzaprine Hcl* (Cyclobenzaprine Hcl*) 10 Mg Tablet, 10 MG PO TID, #15 TAB Prov:SUSAN WHITNEY PA-C 01/01/18 Cephalexin* (Keflex*) 500 Mg Capsule, 500 MG PO QID for 7 Days, CAP Prov:BEHZAD LEMOS PA-C 08/21/17 Naproxen* (Naprosyn*) 500 Mg Tablet, 500 MG PO BID PRN for PAIN AND/OR INFLAMMATION, #30 TAB Prov:BEHZAD LEMOS PA-C 08/21/17 Tramadol HCl (Tramadol HCl) 50 Mg Tablet, 50 MG PO Q4 PRN for PAIN, #20 TAB Prov:SMOOTH CLAYTONC 07/07/17 Acetaminophen* (Tylophen*) 500 Mg Capsule, 1 CAP PO Q6H PRN for PAIN AND OR ELEVATED TEMP, #30 CAP Prov:SMOOTH CLAYTONC 07/07/17 Naproxen* (Naprosyn*) 500 Mg Tablet, 500 MG PO BID PRN for PAIN AND/OR INFLAMMATION, #30 TAB Prov:SMOOTH CLAYTONC 07/07/17 Ondansetron Hcl* (Zofran*) 4 Mg Tablet, 4 MG PO Q6H for NAUSEA AND/OR VOMITING, #30 TAB Prov:SMOOTH CLAYTONC 12/13/16 Acetaminophen* (Tylophen*) 500 Mg Capsule, 1 CAP PO Q6H PRN for PAIN AND OR ELEVATED TEMP, #30 CAP Prov:SMOOTH CLAYTONC 12/13/16 Docusate Sodium* (Colace*) 100 Mg Capsule, 100 MG PO TID, #30 CAP Prov:SMOOTH CLAYTONC 12/13/16 Polyethylene Glycol* (Miralax*) 17 Gm Powd.pack, 17 GM PO DAILY, #20 Prov:SMOOTH CLAYTONC 12/13/16 Tramadol HCl (Tramadol HCl) 50 Mg Tablet, 50 MG PO Q4 PRN for PAIN, #20 TAB Prov:SMOOTH CLAYTONC 12/13/16 Naproxen* (Naprosyn*) 500 Mg Tablet, 500 MG PO BID PRN for PAIN AND/OR INFLAMMATION, #30 TAB Prov:LINDA ROSALES PA-C 09/06/16 Ibuprofen* (Motrin*) 600 Mg Tab, 600 MG PO Q6H PRN for PAIN AND OR ELEVATED TEMP, #30 TAB Prov:PARISA DUFFY MD 10/20/15 Current Medications Sodium Chloride 1,000 ml @ 75 mls/hr [id number] IV Last administered on 01/11/19 11:17; Admin Dose 75 MLS/HR; Start 01/09/19 at 23:28 IV Flush (NS 3 ml) 3 ml PER PROTOCOL IV ; Start 01/09/19 at 23:30 Ondansetron HCl (Zofran Inj) 4 mg Q6H PRN IV NAUSEA/VOMITING Last administered on 01/11/19 09:03; Admin Dose 4 MG; Start 01/09/19 at 23:30 Acetaminophen (Tylenol Tab) 650 mg Q6H PRN PO .PAIN 1-3 OR TEMP Last administered on 01/10/19 05:23; Admin Dose 650 MG; Start 01/09/19 at 23:30 Morphine Sulfate (morphine) 2 mg Q4H PRN IV .SEVERE PAIN 7-10 Last administered on 01/11/19 07:58; Admin Dose 2 MG; Start 01/09/19 at 23:30 Al Hydrox/Mg Hydrox/Simethicone (Mag-Al Plus) 30 ml Q4H PRN PO GASTROINTESTINAL UPSET Last administered on 01/11/19at 14:04; Admin Dose 30 ML; Start 01/10/19 at 00:00 Pantoprazole (Protonix Iv) 40 mg BID@06,18 IV Last administered on 01/11/19 05 :57; Admin Dose 40 MG; Start 01/10/19 at 18:00 Meds reviewed: Yes Allergies Coded Allergies: No Known Allergy (Unverified , 01/08/19) Allergies Reviewed: Yes Labs/Studies Labs Reviewed: Reviewed by anesthesiologist Result Diagram: 01/10/1961701/10/19617 test: N/A Studies: ECG Pre-procedure Exam Last vitals Vital Signs Date Temp Pulse Resp B/P (MAP) Pulse Ox O2 O2 Flow FiO2 Time Delivery Rate 01/11/19 98.7 65 17 117/71 98 Room Air 15:55 (86) 01/11/19 10 15:50 Airway: Adequate mouth opening, Adequate thyromental dist Mallampati: Mallampati II Teeth: Normal Lung: Normal Heart: Normal ASA Physical Status ASA physical status: 3 Emergency: None Planned Anesthetic General/MAC: MAC Planned Pain Management Parenteral pain med Pre-operative Attestations Prior to commencing anesthesia and surgery, the patient was re-evaluated, there was verification of: *The patient's identity *The results of appropriate recent lab work and preoperative vital signs *The above evaluation not changing prior to induction *Anesthetic plan, risk benefits, alternative and complications discussed with patient/family; questions answered; patient/family understands, accepts and wishes to proceed. FEDERICO MELTON MD January 11, 2019 16:07
[2019-01-11] MEDS ORDERED: PROPOFOL 60 ML ONE (16:08)
[2019-01-11] MEDS ORDERED: LIDOCAINE 2% (SDV) 5 ML INJ ONE (16:08)
--- NOTE | 2019-01-11 16:49 | HPN ---
Date/Time of Note Date/Time of Note DATE: 01/11/19 TIME: 16:49 Interval H&P Admission Note Pt. seen H&P reviewed: No system changes LUIZA AQUINO MD January 11, 2019 16:49
--- NOTE | 2019-01-11 17:00 | PAC ---
Date/Time of Note Date/Time of Note DATE: 01/11/19 TIME: 16:59 Post-Anesthesia Notes Post-Anesthesia Note Last documented vital signs Vital Signs Date Temp Pulse Resp B/P (MAP) Pulse Ox O2 O2 Flow FiO2 Time Delivery Rate 01/11/19 98.7 65 17 117/71 98 Room Air 15:55 (86) 01/11/19 10 15:50 Activity: WNL Respiratory function: WNL Cardiovascular function: WNL Mental status: Baseline Pain reasonably controlled: Yes Hydration appropriate: Yes Nausea/Vomiting absent: Yes Comments BP:119/56, P:78, Spo2:100%, T:98,8 FEDERICO MELTON MD January 11, 2019 17:00
[2019-01-12 02:00] VITALS: BP 114/73; PULSE 68; RESP 18
[2019-01-12] MEDS: SOD CHLORIDE 0.9% 1,000 ML IV SCH (05:29)
[2019-01-12] MEDS: PANTOPRAZOLE 40 MG INJ IV SCH (05:29)
[2019-01-12 08:00] VITALS: BP 122/74; PULSE 94; RESP 18
[2019-01-12] MEDS: morphine 2 MG INJ IV PRN (09:16)
--- NOTE | 2019-01-12 11:45 | PN ---
Date/Time of Note Date/Time of Note DATE: 01/12/19 TIME: 11:35 Assessment/Plan VTE Prophylaxis Risk score (from Ns)>0 risk: 3 SCD applied (from Ns): Yes Pharmacological prophylaxis: other (scds) Lines/Catheters IV C[facility]ter Type (from [facility]): Peripheral IV Assessment/Plan Hospital Course Summary Assessment and Plan: Assessment: Abdominal pain EGD 01/11/19 Esophagitis/gastritis -Bx obtained Colonoscopy 01/11/19 -Negative colonoscopy Diarrhea- improved Microcytic anemia, mild- improved Remote history of rectal bleeding -Hemorrhoidal bleed vs inflammation (less likely) vs other Plan: PPI BID x 4weeks Await pathology- pt can f/u with GI after d/c to review pathology results Pt continues to c/o epigastric pain - will start Carafate- pt can continue QID x 4wks If pain is controlled- Ok to d/c from GI point for out-pt management. Patient seen in collaboration with Dr. Brown Subjective: Course reviewed with nursing staff Patient interviewed and examined All labs, imaging and other results reviewed The patient discussed results of EGD/colonoscopy Pt did c/o epigastric pain this am. Currently on regular diet yuri well Discussed need to follow GERD diet at home and continue medication. GENERAL: Alert & oriented x 3, in no acute distress SKIN: No lesions HEAD: Normocephalic, atraumatic, no tenderness. EYES: Pupils equal reactive to light and accommodation, no discharge. EARS/NOSE AND THROAT: Ears normal, nose normal. NECK: Supple, no masses CHEST: Inspection within normal limits. CARDIOVASCULAR: Heart: Regular rate and rhythm RESPIRATORY: Lungs clear to auscultation, no rubs GASTROINTESTINAL AND LIVER: Abdomen: Soft, upper abdominal tenderness- improved from two days ago, non-distended, no hernias, no masses, no organomegaly, normoactive bowel sounds. Rectal: Deferred. EXTREMITIES: No cyanosis, clubbing or edema. Result Diagram: 01/12/19 0641 01/10/19 0618 Results 24hrs Laboratory Tests Test 01/12/19 06:41 White Blood Count 5.1 Red Blood Count 4.17 L Hemoglobin 11.3 L Hematocrit 33.6 L Mean Corpuscular Volume 80.6 L Mean Corpuscular Hemoglobin 27.1 L Mean Corpuscular Hemoglobin Concent 33.6 Red Cell Distribution Width 12.9 Platelet Count 262 # Mean Platelet Volume 11.0 H Immature Granulocytes % 0.200 Neutrophils % 64.0 Lymphocytes % 25.1 Monocytes % 6.7 Eosinophils % 3.0 Basophils % 1.0 Nucleated Red Blood Cells % 0.0 Immature Granulocytes # 0.010 Neutrophils # 3.2 Lymphocytes # 1.3 Monocytes # 0.3 Eosinophils # 0.2 Basophils # 0.1 Nucleated Red Blood Cells # 0.0 Iron Level 80 Total Iron Binding Capacity 355 Percent Iron Saturation 23 Ferritin 34.3 Exam/Review of Systems Exam Vitals Vital Signs Date Temp Pulse Resp B/P (MAP) Pulse Ox O2 O2 Flow FiO2 Time Delivery Rate 01/12/19 98.8 94 18 122/74 96 08:00 (90) 01/11/19 Room Air 17:33 Nasal Cannula 01/11/19 2.0 17:03 Intake and Output 01/11/19 01/11/19 01/12/19 1515:00 23:00 07:00 IntakeIntake Total 675 ml 200 ml 1000 ml BalanceBalance 675 ml 200 ml 1000 ml Results Results 24hrs Laboratory Tests Test 01/12/19 06:41 White Blood Count 5.1 Red Blood Count 4.17 L Hemoglobin 11.3 L Hematocrit 33.6 L Mean Corpuscular Volume 80.6 L Mean Corpuscular Hemoglobin 27.1 L Mean Corpuscular Hemoglobin Concent 33.6 Red Cell Distribution Width 12.9 Platelet Count 262 # Mean Platelet Volume 11.0 H Immature Granulocytes % 0.200 Neutrophils % 64.0 Lymphocytes % 25.1 Monocytes % 6.7 Eosinophils % 3.0 Basophils % 1.0 Nucleated Red Blood Cells % 0.0 Immature Granulocytes # 0.010 Neutrophils # 3.2 Lymphocytes # 1.3 Monocytes # 0.3 Eosinophils # 0.2 Basophils # 0.1 Nucleated Red Blood Cells # 0.0 Iron Level 80 Total Iron Binding Capacity 355 Percent Iron Saturation 23 Ferritin 34.3 Medications Medication Current Medications Sodium Chloride 1,000 ml @ 75 mls/hr [id number] IV Last administered on 01/12/19at 05:29; Admin Dose 75 MLS/HR; Start 01/09/19 at 23:28 IV Flush (NS 3 ml) 3 ml PER PROTOCOL IV ; Start 01/09/19 at 23:30 Ondansetron HCl (Zofran Inj) 4 mg Q6H PRN IV NAUSEA/VOMITING Last administered on 01/11/19 09:03; Admin Dose 4 MG; Start 01/09/19 at 23:30 Acetaminophen (Tylenol Tab) 650 mg Q6H PRN PO .PAIN 1-3 OR TEMP Last administered on 01/10/19 05:23; Admin Dose 650 MG; Start 01/09/19 at 23:30 Morphine Sulfate (morphine) 2 mg Q4H PRN IV .SEVERE PAIN 7-10 Last administered on 01/12/19 09:16; Admin Dose 2 MG; Start 01/09/19 at 23:30 Al Hydrox/Mg Hydrox/Simethicone (Mag-Al Plus) 30 ml Q4H PRN PO GASTROINTESTINAL UPSET Last administered on 01/11/19 14:04; Admin Dose 30 ML; Start 01/10/19 at 00:00 Pantoprazole (Protonix Iv) 40 mg BID@06,18 IV Last administered on 01/12/19 05:29; Admin Dose 40 MG; Start 01/10/19 at 18:00 WOLF PRATT January 12, 2019 11:45
[2019-01-12] MEDS ORDERED: SUCRALFATE (100 MG/ML) 10ML CUP PO SCH (13:00)
--- NOTE | 2019-01-12 13:07 | PDOCDIS ---
Discharge Instructions CONDITION [id number] Patient Condition: [id number] Stable HOME CARE INSTRUCTIONS: [id number] Diet Instructions: [id number] Low Fat /Cholesterol FOLLOW UP/APPOINTMENTS Follow-up Plan Follow-up with for pathology report Name, Degree Bennett Brown MD Specialty Gastroenterology Comments Office Address [id number] [phone] Office Follow-up with primary care physician in 1 week SERJIO FRANCES NP January 12, 2019 13:07
[2019-01-12] MEDS ORDERED: PANT40TA3 PO (13:09)
[2019-01-12] MEDS ORDERED: SUCR1TAB56 PO (13:09)
--- NOTE | 2019-01-12 13:14 | DS ---
Date/Time of Note Date/Time of Note DATE: 01/12/19 TIME: 13:10 Discharge Summary Admission/Discharge Info Admit Date/Time January 09, 2019 at 23:19 Discharge Date/Time Discharge Diagnosis Epigastric abdominal pain, naa paula 2/2gastritis/esophagitis Gastritis/Duodenitis Subclinical hypothyroidism Chronic anemia obesity Patient Condition: Stable Consults Procedures EGD 01/11/19 Esophagitis/gastritis -Bx obtained Colonoscopy 01/11/19 -Negative colonoscopy Hospital Course 43 yo obese F w/no significant pmh who takes ibuprofen 800 mg for abdominal pain here w/ worsening epigastric abd pian worsens w/eating.. She had GI evaluation, she underwent EGD and colonoscopy on 01/11/2019 which showed gastritis/esophagitis.Colonoscopy exam was unremarkable. Recommendation was to continue PPI for 4 weeks. Pathology is pending which patient can be followed up as outpatient. She was also noted with subclinical hypothyroidism for which recommended outpatient follow-up labs. Patient also was noted with microcytic anemia and stable iron panel. HH stable. AT this time, pt w/improved abd pain. Recommended lifestyle changes for obesity. Approximately 60mins spent on coordinating this discharge. Patient was seen in collaboration with Dr. Gutierrez. Home Meds Active Scripts Sucralfate* (Carafate*) 1 Gm Tab, 1 GM PO AC MEALS AND BEDTIME for 30 Days, #120 TAB Prov:SERJIO FRANCES NP 01/12/19 Pantoprazole* (Protonix*) 40 Mg Tablet.dr, 40 MG PO BID for 30 Days, #60 TAB Prov:SERJIO FRANCES NP 01/12/19 Acetaminophen* (Tylenol*) 325 Mg Tablet, 2 TAB PO Q6 PRN for PAIN AND OR ELEVATED TEMP, #20 TAB Prov:ANDRES ROSENTHAL PA-C 01/09/19 Ondansetron (Ondansetron Odt) 4 Mg Tab.rapdis, 4 MG PO Q6H PRN for NAUSEA AND/OR VOMITING, #10 TAB Prov:ANDRES ROSENTHAL PA-C 01/09/19 Discontinued Scripts Ibuprofen* (Motrin*) 800 Mg Tab, 800 MG PO Q6H PRN for PAIN AND OR ELEVATED TEMP, #30 TAB Prov:JUAN HERNANDEZ MD 01/08/19 Acetaminophen* (Tylophen*) 500 Mg Capsule, 2 CAP PO Q8H PRN for PAIN AND OR ELEVATED TEMP, #20 CAP Prov:ANDRES ROSENTHAL PA-C 09/14/18 Ibuprofen* (Motrin*) 600 Mg Tab, 600 MG PO Q6, #30 TAB Prov:ANDRES ROSENTHAL PA-C 09/14/18 Naproxen* (Naprosyn*) 500 Mg Tablet, 500 MG PO BID PRN for PAIN AND/OR INFLAMMATION, #30 TAB Prov:SUSAN WHITNEY PA-C 01/01/18 Cyclobenzaprine Hcl* (Cyclobenzaprine Hcl*) 10 Mg Tablet, 10 MG PO TID, #15 TAB Prov:SUSAN WHITNEYC 01/01/18 Cephalexin* (Keflex*) 500 Mg Capsule, 500 MG PO QID for 7 Days, CAP Prov:BEHZAD LEMOSC 08/21/17 Naproxen* (Naprosyn*) 500 Mg Tablet, 500 MG PO BID PRN for PAIN AND/OR INFLAMMATION, #30 TAB Prov:BEHZAD LEMOSC 08/21/17 Tramadol HCl (Tramadol HCl) 50 Mg Tablet, 50 MG PO Q4 PRN for PAIN, #20 TAB Prov:SMOOTH CLAYTON PA-C 07/07/17 Acetaminophen* (Tylophen*) 500 Mg Capsule, 1 CAP PO Q6H PRN for PAIN AND OR ELEVATED TEMP, #30 CAP Prov:SMOOTH CLAYTONC 07/07/17 Naproxen* (Naprosyn*) 500 Mg Tablet, 500 MG PO BID PRN for PAIN AND/OR INFLAMMATION, #30 TAB Prov:SMOOTH CLAYTONC 07/07/17 Ondansetron Hcl* (Zofran*) 4 Mg Tablet, 4 MG PO Q6H for NAUSEA AND/OR VOMITING, #30 TAB Prov:SMOOTH CLAYTONC 12/13/16 Acetaminophen* (Tylophen*) 500 Mg Capsule, 1 CAP PO Q6H PRN for PAIN AND OR ELEVATED TEMP, #30 CAP Prov:SMOOTH CLAYTON PA-C 12/13/16 Docusate Sodium* (Colace*) 100 Mg Capsule, 100 MG PO TID, #30 CAP Prov:SMOOTH CLAYTON PA-C 12/13/16 Polyethylene Glycol* (Miralax*) 17 Gm Powd.pack, 17 GM PO DAILY, #20 Prov:SMOOTH CLAYTON PA-C 12/13/16 Tramadol HCl (Tramadol HCl) 50 Mg Tablet, 50 MG PO Q4 PRN for PAIN, #20 TAB Prov:SMOOTH CLAYTON PA-C 12/13/16 Naproxen* (Naprosyn*) 500 Mg Tablet, 500 MG PO BID PRN for PAIN AND/OR IN FLAMMATION, #30 TAB Prov:LINDA ROSALES PA-C 09/06/16 Ibuprofen* (Motrin*) 600 Mg Tab, 600 MG PO Q6H PRN for PAIN AND OR ELEVATED TEMP, #30 TAB Prov:PARISA DUFFY MD 10/20/15 Follow-up Plan Follow-up with for pathology report Name, Degree Bennett Brown MD Specialty Gastroenterology Comments Office Address [id number] [phone] Office Follow-up with primary care physician in 1 week Primary Care Provider Care Physician No Primary Pending Labs Laboratory Tests Test 01/12/19 06:41 White Blood Count 5.1 10^3/ul (4.8-10.8) Red Blood Count 4.17 10^6/ul (4.20-5.40) Hemoglobin 11.3 g/dl (12.0-16.0) Hematocrit 33.6 % (37.0-47.0) Mean Corpuscular Volume 80.6 fl (82.0-101.0) Mean Corpuscular Hemoglobin 27.1 pg (29.0-33.0) Mean Corpuscular Hemoglobin Concent 33.6 g/dl (32.0-37.0) Red Cell Distribution Width 12.9 % (11.5-14.5) Platelet Count 262 10^3/UL (140-415) Mean Platelet Volume 11.0 fl (7.4-10.4) Immature Granulocytes % 0.200 % (0.001-0.429) Neutrophils % 64.0 % (39.0-77.0) Lymphocytes % 25.1 % (15.0-51.0) Monocytes % 6.7 % (0.0-11.0) Eosinophils % 3.0 % (0.0-7.0) Basophils % 1.0 % (0.0-2.0) Nucleated Red Blood Cells % 0.0 /100WBC (0.0-0.0) Immature Granulocytes # 0.010 10^3/ul (0.0-0.031) Neutrophils # 3.2 10^3/ul (1.6-7.5) Lymphocytes # 1.3 10^3/ul (0.8-2.9) Monocytes # 0.3 10^3/ul (0.3-0.9) Eosinophils # 0.2 10^3/ul (0.0-0.5) Basophils # 0.1 10^3/ul (0.0-0.1) Nucleated Red Blood Cells # 0.0 10^3/ul (0.0-0.0) Iron Level 80 ug/dl (35-150) Total Iron Binding Capacity 355 ug/dl (241-421) Percent Iron Saturation 23 % SAT (22-52) Ferritin 34.3 ng/ml (6.2-137.0) SERJIO FRANCES NP January 12, 2019 13:14
[2019-01-12 14:00] VITALS: BP 118/76; PULSE 96; RESP 18
== END 2019-01-12 16:05 | disposition home or self-care (01) | DRG 392 ==
LOC: E/R 20:37 → PP2 23:19
PROVIDERS: ADMIT Family Medicine; ATTEND Family Medicine
PROC: 0DB68ZX Excision of Stomach, Via Natural or Artificial Opening Endoscopic, Diagnostic (ICD-10-PCS; principal; 2019-01-11 17:30)
PROC: 0DJD8ZZ Inspection of Lower Intestinal Tract, Via Natural or Artificial Opening Endoscopic (ICD-10-PCS; 2019-01-11 17:30)
DX: K29.70 Gastritis, unspecified, without bleeding (principal); E66.9 Obesity, unspecified; Z68.30 Body mass index [BMI] 30.0-30.9, adult; D64.9 Anemia, unspecified; K20.9 Esophagitis, unspecified; K29.80 Duodenitis without bleeding; E03.9 Hypothyroidism, unspecified; D50.9 Iron deficiency anemia, unspecified; E78.5 Hyperlipidemia, unspecified; K64.8 Other hemorrhoids
CPT/HCPCS: 36415; 74177; 76705; 80053; 81001; 81025; 82270; 82728; 83036; 83540; 83690; 83735; 84436; 84443; 84479; 84703; 85025; 87075; 88305; 88312; 96361; 96374; 96375; C9113; J1885; J2270; J2405; J7030; Q9967

== ENCOUNTER 2019-01-27 18:22 | Emergency (ER) | payer MEDICAID ==
[~2019-01-27] VITALS: Ht 167.6 cm; Wt 83.2 kg
[~2019-01-27 18:22] MED LIST changes: -IBUP800T48 PO; +PANT40TA3 PO; +SUCR1TAB56 PO
[2019-01-27 18:31] VITALS: Ht 167.6 cm; Wt 83.2 kg
[2019-01-27] MEDS ORDERED: ONDANSETRON 4 MG INJ IV STA (19:51)
[2019-01-27] MEDS ORDERED: ASPIRIN 325 MG TAB PO STA (19:51)
[2019-01-27] MEDS ORDERED: SOD CHLORIDE 0.9% 1,000 ML IV STA (19:51)
[2019-01-27] MEDS ORDERED: morphine 4 MG/ML VIAL IV STA (19:51)
--- NOTE | 2019-01-27 20:53 | ERD ---
ER Documentation Chief Complaint Chief Complaint sob PAIN WITH INSPIRATION HPI 43-year-old female with past medical history of gastritis presents to the emergency department complaining of left Chest pain with radiation to her left arm for the past 3 days but worse today. She states pain is rated 10/10 in severity. She also reports a significant amount of belching. She does report eating spicy food. She also reports right upper quadrant pain. She endorses nausea. She tried no medication for relief of symptoms. No other symptoms reported currently. ROS All systems reviewed and are negative except as per history of present illness. Medications Home Meds Active Scripts Sucralfate* (Carafate*) 1 Gm Tab, 1 GM PO AC MEALS AND BEDTIME for 30 Days, #120 TAB Prov:FRANCES,SERJIO V. MENTAL HEALTH COORDINATOR 01/12/19 Pantoprazole* (Protonix*) 40 Mg Tablet.dr, 40 MG PO BID for 30 Days, #60 TAB Prov:FRANCES,SERJIO V. MENTAL HEALTH COORDINATOR 01/12/19 Acetaminophen* (Tylenol*) 325 Mg Tablet, 2 TAB PO Q6 PRN for PAIN AND OR ELEVATED TEMP, #20 TAB Prov:ANDRES ROSENTHAL PA-C 01/09/19 Ondansetron (Ondansetron Odt) 4 Mg Tab.rapdis, 4 MG PO Q6H PRN for NAUSEA AND/OR VOMITING, #10 TAB Prov:ANDRES ROSENTHAL PA-C 01/09/19 Allergies Allergies: Coded Allergies: No Known Allergy (Unverified , 01/08/19) PMhx/Soc History of Surgery: Yes (bilateral tubal ligation november 2003) Anesthesia Reaction: No Hx Neurological Disorder: No Hx Respiratory Disorders: No Hx Cardiac Disorders: No Hx Psychiatric Problems: No Hx Miscellaneous Medical Probl: No Hx Alcohol Use: No Hx Substance Use: No Hx Tobacco Use: No Smoking Status: Never smoker FmHx Family History: No diabetes Physical Exam Vitals Vital Signs Date Temp Pulse Resp B/P (MAP) Pulse Ox O2 O2 Flow FiO2 Time Delivery Rate 01/27/19 99.5 92 20 128/73 99 18:31 (91) Physical Exam Const: No acute distress Head: Atraumatic Eyes: Normal Conjunctiva ENT: Normal External Ears, Nose and Mouth. Neck: Full range of motion. No meningismus. Resp: Clear to auscultation bilaterally Cardio: Regular rate and rhythm, no murmurs. Reproducible left chest wall tenderness to palpation. Abd: Soft, right upper quadrant tenderness to palpation, no true Ferrell sign, no McBurney's point tenderness, non distended. Normal bowel sounds Skin: No petechiae or rashes Back: No midline or flank tenderness Ext: No cyanosis, or edema Neur: Awake and alert Psych: Normal Mood and Affect Result Diagram: 01/27/19201001/27/192010 Results 24 hrs Laboratory Tests Test 01/27/19 19:25 01/27/19 19:27 01/27/19 20:11 Urine Color YELLOW Urine Clarity SLIGHTLY CLOUDY Urine pH 5.0 Urine Specific Arnot 1.013 Urine Ketones NEGATIVE mg/dL Urine Nitrite NEGATIVE mg/dL Urine Bilirubin NEGATIVE mg/dL Urine Urobilinogen NEGATIVE mg/dL Urine Leukocyte Esterase NEGATIVE Zach/ul Urine Microscopic RBC 1 /HPF Urine Microscopic WBC 2 /HPF Urine Squamous Epithelial Cells FEW /HPF Urine Bacteria FEW /HPF Urine Hemoglobin NEGATIVE mg/dL Urine Glucose NEGATIVE mg/dL Urine Total Protein NEGATIVE mg/dl POC Beta HCG, Qualitative NEGATIVE White Blood Count 8.1 10^3/ul Red Blood Count 4.35 10^6/ul Hemoglobin 11.9 g/dl Hematocrit 35.1 % Mean Corpuscular Volume 80.7 fl Mean Corpuscular Hemoglobin 27.4 pg Mean Corpuscular 33.9 g/dl Hemoglobin Concent Red Cell Distribution Width 13.2 % Platelet Count 306 10^3/UL Mean Platelet Volume 11.3 fl Immature Granulocytes % 0.200 % Neutrophils % 58.3 % Lymphocytes % 30.4 % Monocytes % 8.2 % Eosinophils % 1.9 % Basophils % 1.0 % Nucleated Red Blood Cells % 0.0 /100WBC Immature Granulocytes # 0.020 10^3/ul Neutrophils # 4.7 10^3/ul Lymphocytes # 2.5 10^3/ul Monocytes # 0.7 10^3/ul Eosinophils # 0.2 10^3/ul Basophils # 0.1 10^3/ul Nucleated Red Blood Cells # 0.0 10^3/ul Prothrombin Time 12.9 Sec Prothrombin Time Ratio 1.0 INR International 0.96 Normalized Ratio Activated Partial Thromboplast 32.6 Sec Time D-Dimer 1157.14 ng/ml D-Dimer Comment Sodium Level 141 mmol/L Potassium Level 4.1 mmol/L Chloride Level 107 mmol/L Carbon Dioxide Level 25 mmol/L Anion Gap 9 Blood Urea Nitrogen 15 mg/dl Creatinine 0.75 mg/dl Est Glomerular Filtrat > 60 mL/min Rate mL/min Glucose Level 91 mg/dl Calcium Level 9.6 mg/dl Total Bilirubin 0.7 mg/dl Direct Bilirubin 0.00 mg/dl Indirect Bilirubin 0.7 mg/dl Aspartate Amino 35 IU/L Transf (AST/SGOT) Alanine 19 IU/L Aminotransferase (ALT/SGPT) Alkaline Phosphatase 67 IU/L Troponin I < 0.012 ng/ml Total Protein 8.5 g/dl Albumin 4.6 g/dl Globulin 3.90 g/dl Albumin/Globulin Ratio 1.17 Current Medications Medications Dose Sig/Radha Start Time Status Last (Trade) Ordered Route PRN Stop Time Admin Dose Reason Admin Sodium 1,000 ml @ Q1H STAT 01/27/19 DC 01/27/19 Chloride 1,000 mls/hr IV 19:51 20:17 01/27/19 20:50 Aspirin 325 mg ONCE STAT 01/27/19 DC 01/27/19 (Aspirin) PO 19:51 20:17 01/27/19 19:55 Morphine 4 mg ONCE STAT 01/27/19 DC 01/27/19 Sulfate IV 19:51 20:17 (morphine) 01/27/19 19:55 Ondansetron 4 mg ONCE STAT 01/27/19 DC 01/27/19 HCl (Zofran IV 19:51 20:17 Inj) 01/27/19 19:55 IV Flush 10 ml STK-MED 01/27/19 DC (NS 10 ml) ONCE .ROUTE 21:40 01/27/19 21:41 Sodium 100 ml @ ud STK-MED 01/27/19 DC Chloride ONCE .ROUTE 21:40 01/27/19 21:41 Iohexol 100 ml @ ud STK-MED 01/27/19 DC ONCE .ROUTE 21:40 01/27/19 21:41 [place] [id number] Radiology Main Line: [phone] DIAGNOSTIC IMAGING REPORT Patient: ANTHONY LUNA : 1975 Age: 43 Sex: F MR #: [id number] DOS: 01/27/19 1951 Ordering MD: SUSAN WHITNEY PA-C Location: [facility] Room/Bed: PROCEDURE: XR Chest. CLINICAL INDICATION: Chest pain. TECHNIQUE: Single frontal chest x-ray. COMPARISON: Chest radiograph 07/07/2017. FINDINGS: The cardiomediastinal silhouette is unremarkable. No pneumothorax, pleural effusion or consolidation is seen. No acute osseous abnormality is noted. IMPRESSION: 1. No acute cardiopulmonary abnormality. RPTAT: HFN .Michelet Mcfadden MD, MD Date Time Electronically viewed and signed by .Michelet Mcfadden MD, MD on 01/27/2019 20:57 .N/ CC: SUSAN WHITNEY PA-C [id number] [place] [id number] Radiology Main Line: [phone] DIAGNOSTIC IMAGING REPORT Patient: ANTHONY LUNA : 1975 Age: 43 Sex: F MR #: [id number] DOS: 01/27/19 0000 Ordering MD: SUSAN WHITNEY PA-C Location: [facility] Room/Bed: PROCEDURE: Abdominal ultrasound, limited. CLINICAL INDICATION: Abdominal pain. TECHNIQUE: Multiple real-time images were acquired of the patient's right upper abdomen utilizing a high resolution transducer. COMPARISON: 01/09/2019. FINDINGS: The liver demonstrates normal echogenicity and size measuring 15.0 cm. There is no focal mass or intrahepatic biliary ductal dilatation. The portal vein is pa tent. The gallbladder is obscured by overlying bowel gas. No gallstones are identified. There is no pericholecystic fluid or gallbladder wall thickening. The common bile duct measures 3.8 mm in maximal dimension. The pancreas is obscured by overlying bowel gas. No free fluid is identified. The right kidney is normal size and echogenicity measuring 11.4 x 5.6 x 5.6 cm. There is no focal renal mass or echogenic calculus identified. There is no obstructive uropathy. IMPRESSION: Pancreas and gallbladder obscured by overlying bowel gas. Otherwise unremarkable right upper abdominal ultrasound. .Martín Kumar MD, MD Date Time Electronically viewed and signed by .Martín Kumar MD, MD on 01/27/2019 21:11 .T/ CC: SUSAN WHITNEY PA-C [id number] Procedures/MDM 43-year-old female presenting to the emergency department complaining of left- sided chest wall pain and shortness of breath. Full work-up was obtained to the patient's history and physical examination. Initial troponin was negative. Chest x-ray was within normal limits. EKG was not consistent with acute coronary syndrome. CBC and CMP were within normal limits. EKG: Interpreted by ED physician. Rate/Rhythm: Normal Sinus Rhythm with a rate of 94 bpm. QRS, ST, T-waves: No changes consistent w/ acute ischemia Impression: No evidence of ischemia or arrhythmia Medical decision making: Differential diagnosis included but were not limited to acute coronary syndrome, costochondritis, GERD, cholecystitis, biliary colic, pneumothorax, aortic dissection, pulmonary embolism, and others. This patient will be signed out to my colleague, Jose Lloyd NP pending second troponin result and CT angiogram of the chest. Patient remained hemodynamically stable under my direct care and she was in agreement with her work-up. Departure Diagnosis: Primary Impression: Shortness of breath Condition: Fair SUSAN WHITNEY PA-C Jan 27, 2019 20:53
[2019-01-27] MEDS ORDERED: SOD CHLORIDE 0.9% 100 ML ONE (21:40)
[2019-01-27] MEDS ORDERED: IOHEXOL 100 ML ONE (21:40)
--- NOTE | 2019-01-27 23:16 | EN ---
Date/Time of Note Date/Time of Note DATE: 01/27/19 TIME: 23:15 ER Progress Note This case was endorsed to me by previous provider, Toñito Felton PA-C This is a 43-year-old female who presents here with complaints of shortness of breath for about 3 days. Her gallbladder ultrasound is negative, chest x-ray was negative. Her blood works was also unremarkable except for the elevated d- dimer. Previous provider ordered CT angiogram of the chest, which revealed negative CTA chest and pulmonary angiogram, no evidence for pulmonary embolism, equally unremarkable CT chest, mild benign postinflammatory scarring. Her second troponin was negative. She denies chest pain at this time. She denies difficulty breathing lying flat. She has no calf tenderness bilaterally. Her capillary refills are less than 2 seconds. No neurovascular deficit. No neurological deficits. Diagnostic test results, reevaluation was discussed with my supervising physician, Dr. Carrington Aparicio who agreed with our medical decision making. My differential diagnosis includes but not limited to sepsis, acute microinfarction, acute coronary syndrome, pneumonia, pneumothorax, pulmonary embolism, cardiac tamponade, CHF, hemothorax, aortic dissection, punctured lungs, pancreatitis, cholecystitis, diverticulitis, bowel obstruction, DVT. Patient will be discharged with a final diagnosis of shortness of breath that was written with the previous provider. Patient was advised to follow-up with his primary care physician and refer her to geography head in the next 4 to 5 days. She verbalized understanding and agreed with the plan of care. Stated that she is comfortable going home. Vital signs are unremarkable. Hemodynamically stable on discharge. KIRIT SHARPE Jan 27, 2019 23:16
[2019-01-27 23:36] VITALS: BP 110/76; PULSE 82; RESP 20
== END 2019-01-27 23:38 | disposition home or self-care (01) ==
LOC: FTE 18:22
DX: R06.02 Shortness of breath (principal)
CPT/HCPCS: 36415; 71045; 71275; 76705; 80053; 81001; 81003; 81025; 84484; 85025; 85378; 85610; 85730; 93005; 96374; 96375; J2270; J2405; J7030; Q9967; Z7502; Z7610